=== PATIENT | female | born 1995 | race Hispanic/Latino ===

== ENCOUNTER 2019-07-28 03:16 | Emergency (ER) | payer OTHER, MEDICAID, SELFPAY ==
--- NOTE | 2019-07-28 03:20 | DI.US.S_ITS ---
PROCEDURE: US ABDOMEN LIMITED INDICATIONS: PAIN TECHNIQUE: Real-time focused scanning was performed of the abdomen, with image documentation. COMPARISON: None. FINDINGS: The included portions of the liver demonstrates mild increased echogenicity when compared to the right kidney. No focal liver lesions are appreciated. There is no intrahepatic biliary dilatation. However, the common bile duct is dilated at 8 mm in diameter. Multiple gallstones are identified within the gallbladder. There is no gallbladder wall thickening or pericholecystic fluid. The patient did exhibit a positive sonographic Garcia sign. The overlying pancreas was obscured by bowel gas. Imaged portions of the right kidney are unremarkable without hydronephrosis. IMPRESSION: 1. Cholelithiasis with associated common mild duct dilatation and a positive sonographic Garcia sign. Please correlate clinically to exclude cholecystitis. The need for better characterization utilizing MRCP may be determined clinically. 2. Probable hepatic steatosis. Note: The preliminary report provided by [facility] is concordant with the final report. Dictated by: Jenaro Tovar M.D. on 07/28/2019 at 7:47 Approved by: Jenaro Tovar M.D. on 07/28/2019 at 7:49
[2019-07-28] MEDS: SODIUM CHLORIDE 0.9% 1,000 ML 1000 ML IV (03:37)
[2019-07-28] MEDS: ONDANSETRON 4 MG/2 ML INJ IV (03:37)
[2019-07-28 03:38] LABS: Add Manual Diff / Slide Review NO; Basophils Absolute Auto 100 /uL (0-100); Basophils Percent Auto 0.4 % (0-2); Eosinophils Absolute Auto 200 /uL (0-450); Eosinophils Percent Auto 1.6 % (2-4); Hemoglobin 12.1 g/dL (12.0-16.0); Lymphocytes Absolute Auto 4200 /uL (1100-4500); Lymphocytes Percent Auto 33.2 % (25-40); Mean Corpuscular HGB Conc 32.7 % (30-36); Mean Corpuscular Hemoglobin 26.7 PG (26-34); Mean Corpuscular Volume 81.8 fL (80-100); Monocytes Absolute Auto 700 /uL (0-900); Monocytes Percent Auto 5.6 % (3-14); Neutrophils Absolute Auto 7500 /uL (1500-7000); Neutrophils Percent Auto 59.2 % (50-75); Platelet Count 409 X10^3/uL (150-400); Red Blood Cell Count 4.53 X10^6/uL (4.0-5.2); White Blood Cell Count 12.6 X10^3/uL (4.5-11.0)
[2019-07-28] MEDS: HYDROMORPHONE 0.5 MG INJ IV (03:38)
--- NOTE | 2019-07-28 03:40 | ED.ABDPAIN ---
HPI - Abdominal Pain General Chief Complaint: Abdominal Pain Stated Complaint: nausea vomiting states have gallstones Time Seen by Provider: 07/28/19 03:17 Source: patient Mode of arrival: Ambulatory Limitations: no limitations History of Present Illness HPI narrative: 24F non smoker with known gallstones presents with the chief complaint of severe epigastric and right upper quadrant pain with radiation to her back and nausea and vomiting since eating dinner last night. She states she ate a greasy meal and had some alcohol and has been extremely uncomfortable ever since. She had been seen and evaluated few months ago up in [place] and was told she had gallstones. She was referred to a surgeon but started feeling better and did not follow-up. She presented initially to another facility this evening but decided to leave their waiting room and come here instead. She denies fever or chills. She denies any dysuria, frequency or urgency. She denies any constipation or diarrhea. She has been NPO since 2299. She has no known exposure to COVID 19 complaint: abdominal pain Onset (ago): hour(s) Pain Consistency: constant Location: RUQ Severity: severe Quality: cramping and stabbing Radiation: back Relieving factors: nothing Exacerbating factors: eating and movement Associated symptoms: nausea and vomiting Related Data Previous Rx's Medication Instructions Recorded sulfamethoxazole-trimethoprim 1 tab PO BID #12 tab 06/24/16 hydrocodone-acetaminophen 1 tab PO Q4-6H PRN #10 tab 07/28/19 ondansetron 4 mg PO TID-QID PRN #10 tab 07/28/19 Allergies Allergy/AdvReac Type Severity Reaction Status Date / Time No Known Drug Allergies Allergy Verified 07/28/19 03:37 Review of Systems Constitutional Constitutional: Denies chills, Denies fatigue, Denies fever(s), Denies frequent falls, Denies lethargy and Denies weakness Eyes Eyes: Denies change in vision, Denies eye discharge, Denies irritation and Denies loss of vision ENT Ears, Nose, Mouth, and Throat: Denies change in voice, Denies dizziness, Denies neck pain, Denies sore throat and Denies throat swelling Cardiovascular Cardiovascular: Denies chest pain, Denies irregular heart rhythm, Denies lightheadedness, Denies palpitations, Denies dyspnea, Denies dyspnea on exertion and Denies orthopnea Respiratory Respiratory: Denies cough, Denies dyspnea, Denies dyspnea on exertion and Denies wheezing Gastrointestinal Gastrointestinal: Reports abdominal pain, Denies change in bowel habits, Denies diarrhea, Reports nausea and Reports vomiting Musculoskeletal Musculoskeletal: Denies neck pain and Denies numbness Integumentary/Breasts Skin/Breast: Denies pruritus, Denies erythema, Denies rash and Denies wounds Neurologic Neurologic: Denies behavioral changes, Denies confusion, Denies dizziness, Denies frequent falls, Denies loss of vision, Denies numbness and Denies weakness Psychiatric Psychiatric: Denies anxiety, Denies behavioral changes, Denies confusion, Denies depression, Denies homicidal ideation and Denies suicidal ideation Endocrine Endocrine: Denies fatigue, Denies flushing and Denies palpitations Hematologic/Lymphatic Hematologic/Lymphatic: Denies easy bruising Allergic/Immunologic Allergic/Immunologic: Denies urticaria, Denies throat swelling and Denies wheezing Patient History Social History Smoking Status: Never smoker Smoking Status: Never smoker alcohol intake frequency: a few times a month Substance Use Type: does not use Exam Narrative Exam Narrative: GENERAL: [24] year old patient appears stated age. Well-nourished, well-developed patient, in moderate distress. Obviously in pain, holding an emesis bag HEAD: Atraumatic. Normocephalic. EYES: Pupils equal round and reactive. Extraocular motions intact. No scleral icterus. No injection or drainage. ENT: Nose without bleeding, purulent drainage. Throat without erythema, tonsillar hypertrophy or exudate. Airway patent. NECK: Trachea midline. Non tender CARDIOVASCULAR: Regular rate and rhythm without murmurs, gallops, or rubs. RESPIRATORY: Clear to auscultation. Breath sounds equal bilaterally. No wheezes, rales, or rhonchi. GASTROINTESTINAL: Abdomen soft, tender in RUQ to palp, Positive Milton, nondistended. EXTREMITIES: No edema or joint tenderness. BACK: Nontender without deformity or crepitance. No flank tenderness. NEURO: AOx3. SKIN: No rash or erythema of visible areas Initial Vital Signs Initial Vital Signs: Vital Signs Pulse Rate 75 07/28/19 04:26 Respiratory Rate 18 07/28/19 04:26 Blood Pressure 107/53 L 07/28/19 04:26 Pulse Oximetry 100 07/28/19 04:26 Course Orders Ordered: Discontinued Medications Hydrocodone Bitart/Acetaminophen (Vicodin 5/325 Prepack) 1 bottle MISC SEEINSTR ONE Stop: 07/28/19 04:09 Last Admin: 07/28/19 04:16 Dose: 1 bottle Documented by: ARPIT Hydromorphone HCl (Dilaudid) 0.5 mg IV NOW ONE Stop: 07/28/19 03:21 Last Admin: 07/28/19 03:38 Dose: 0.5 mg Documented by: ARPIT Sodium Chloride (Normal Saline 0.9%) 1,000 mls @ 1,000 mls/hr IV BOLUS ONE Stop: 07/28/19 04:19 Last Infusion: 07/28/19 04:26 Dose: 0 mls/hr Documented by: Admin: 07/28/19 03:37 Dose: 1,000 mls/hr Documented by: ARPIT Ondansetron HCl (Zofran) 4 mg IV Q4HR PRN PRN Reason: Nausea And Vomiting Last Admin: 07/28/19 03:37 Dose: 4 mg Documented by: ARPIT Ondansetron HCl (Zofran Odt Prepack) 1 bottle MISC SEEINSTR ONE Stop: 07/28/19 04:09 Last Admin: 07/28/19 04:16 Dose: 1 bottle Documented by: ARPIT Consultations Consultation #1: call to Dr. Cuenca. Given lack of lab abnormalities and lack of choley on US no indication for admission at this time, but a good candidate for close outpatient follow up and scheduled surgery MDM - Abdominal Pain Lab Data Result diagrams: 07/28/19 03:24 07/28/19 03:24 Labs: Lab Results 07/28/19 07/28/19 07/28/19 Range/Units 03:24 03:24 03:24 WBC 12.6 H (4.5-11.0) X10^3/uL RBC 4.53 (4.0-5.2) X10^6/uL Hgb 12.1 (12.0-16.0) g/dL Hct 37.0 (36-46) % MCV 81.8 (80-100) fL MCH 26.7 (26-34) PG MCHC 32.7 (30-36) % RDW 15.0 H (11.6-14.8) % Plt Count 409 H (150-400) X10^3/uL Neut % (Auto) 59.2 (50-75) % Lymph % (Auto) 33.2 (25-40) % [place] % (Auto) 5.6 (3-14) % Eos % (Auto) 1.6 L (2-4) % Baso % (Auto) 0.4 (0-2) % Neut # (Auto) 7500 H (9500-2248) /uL Lymph # (Auto) 4200 (6898-7334) /uL [place] # (Auto) 700 (0-900) /uL Eos # (Auto) 200 (0-450) /uL Baso # (Auto) 100 (0-100) /uL Sodium 139 (137-145) mmol/L Potassium 3.7 (3.4-5.1) mmol/L Chloride 104 (98-107) mmol/L Carbon Dioxide 23 (22-32) mmol/L BUN 12 (7-17) mg/dL Creatinine 0.62 (0.52-1.04) mg/dL Estimated GFR > 60.0 (>60) mL/min BUN/Creatinine Ratio 19.4 (6-22) Glucose 128 H (70-100) mg/dL Calcium 9.5 (8.4-10.2) mg/dL Total Bilirubin 0.4 (0.2-1.3) mg/dL AST 36 (14-36) IU/L ALT 23 (<35) IU/L Alkaline Phosphatase 120 (38-126) U/L Total Protein 8.2 (6.3-8.2) g/dL Albumin 4.5 (3.5-5.0) g/dL Globulin 3.7 (1.7-4.1) g/dL Albumin/Globulin Ratio 1.2 (1.0-2.8) Lipase 71 (23-300) U/L Serum , Qual Negative (Negative) Imaging Data US - abdomen: Radiologist's Impression: Chart Viewer Diagnostics DATE TYPE STATUS REF RANGE/AUTHOR Hx 07/28/19 03:20 Jenaro Tovar,[place] 24, F0 1995 DEP ER, [facility] 94.801kg Abdominal Pain Search Chart No Data to Display ONSET 07/28/19 04:26 Micki Naqvi 24 F [address] [address] Ultrasound Report Signed Patient: Mindy Naqvi#: [id number] : 1995Acct:[id number] Age/Sex: 24 / FDate of Service: 07/28/19 Loc: ED Accession Number: [id number] Procedure: US abdomen limited Ordering Provider: Andre Coelho D.O. PROCEDURE: US ABDOMEN LIMITED INDICATIONS: PAIN TECHNIQUE: Real-time focused scanning was performed of the abdomen, with image documentation. COMPARISON: None. FINDINGS: The included portions of the liver demonstrates mild increased echogenicity when compared to the right kidney. No focal liver lesions are appreciated. There is no intrahepatic biliary dilatation. However, the common bile duct is dilated at 8 mm in diameter. Multiple gallstones are identified within the gallbladder. There is no gallbladder wall thickening or pericholecystic fluid. The patient did exhibit a positive sonographic Garcia sign. The overlying pancreas was obscured by bowel gas. Imaged portions of the right kidney are unremarkable without hydronephrosis. IMPRESSION: 1. Cholelithiasis with associated common mild duct dilatation and a positive sonographic Garcia sign. Please correlate clinically to exclude cholecystitis. The need for better characterization utilizing MRCP may be determined clinically. 2. Probable hepatic steatosis. Note: The preliminary report provided by [employer] is concordant with the final report. Dictated by: Jenaro Tovar M.D. on 07/28/2019 at 7:47 Approved by: Jenaro Tovar M.D. on 07/28/2019 at 7:49 [facility] Narrative Medical decision making narrative: 24F with known GB disease develops pain after fatty meal. Pain on exam, but reasuring labs and preliminary US report. Pain controlled, no more vomiting. Discussion regarding low fat diet, pain meds, close follow up and return precautions. Patient understands and agrees with the plan. Questions answered to her apparent satisfaction. Discharge Plan Departure Patient Disposition: Home Clinical Impression: Biliary colic Discharge Date/Time: 07/28/19 04:19 Instructions: Gallstones Activity Restrictions/Additional Instructions: *You have been diagnosed with [ abdominal pain due to gallgladder disease ] *What to do: *Take medications as directed: Prescriptions sent to [facility] in [place] *Follow up with [facility] in 2-3 days, call for an appointment. Let them know you were seen in the Emergency Department and that we ask that you be seen in follow up *Return to ER if you should have any new, worsening or concerning symptoms, such as [ recurrence of pain, fever over 101F, jaundice (yellowing of the skin) orother bothersome symptoms 1. Drink plenty of fluids with frequent small sips. 2. For the next 24 hours a clear liquid diet is advised. After that please employ a brat diet which would include bananas, rice, apples, toast. 3. Avoid fatty or greasy foods Prescriptions: New hydrocodone-acetaminophen 5-325 mg tablet 1 tab PO Q4-6H PRN (Reason: pain) Qty: 10 RF: 0 ondansetron 4 mg tablet,disintegrating 4 mg PO TID-QID PRN (Reason: nausea and vomiting) Qty: 10 RF: 0 No Action sulfamethoxazole-trimethoprim 800 MG/160 MG tablet 1 tab PO BID Qty: 12 RF: 0 Referrals: Temo Cuenca MD [Physician] - Pam Harris MD [Primary Care Provider] -
[2019-07-28 03:48] LABS: Alanine Aminotransferase 23 IU/L (<35); Albumin 4.5 g/dL (3.5-5.0); Albumin Globulin Ratio 1.2 (1.0-2.8); Alkaline Phosphatase 120 U/L (38-126); Aspartate Aminotransferase 36 IU/L (14-36); BUN Creatinine Ratio 19.4 (6-22); Bilirubin Total 0.4 mg/dL (0.2-1.3); Blood Urea Nitrogen 12 mg/dL (7-17); Calcium 9.5 mg/dL (8.4-10.2); Carbon Dioxide 23 mmol/L (22-32); Chloride 104 mmol/L (98-107); Estimated Glomerular Filt Rate > 60.0 mL/min (>60); Globulin 3.7 g/dL (1.7-4.1); Glucose 128 mg/dL (70-100); HEMOLYSIS < 15 (0-50); Lipase 71 U/L (23-300); Potassium 3.7 mmol/L (3.4-5.1); Sodium 139 mmol/L (137-145); Total Protein 8.2 g/dL (6.3-8.2)
[2019-07-28] MEDS: ONDANSETRON 4 MG ODT PREPACK 1 BOTTLE MISC (04:16)
[2019-07-28] MEDS: HYDROCODONE/ACET 5/325 PREPACK 1 BOTTLE MISC (04:16)
[2019-07-28 04:26] VITALS: BP 107/53; PULSE 75; RESP 18; O2SAT 100
[2019-07-28 04:27] LABS: Pregnancy Test Serum,Qual Negative (Negative)
== END 2019-07-28 04:19 | disposition home or self-care (01) ==
PROVIDERS: Emergency Provider Emergency Medicine; PCP Pediatrics
DX: K80.50 Calculus of bile duct without cholangitis or cholecystitis without obstruction (principal); R11.2 Nausea with vomiting, unspecified
CPT/HCPCS: 36415; 76705; 80053; 83690; 84703; 85025; 96361; 96374; 96375; 99284; J1170; J2405

== ENCOUNTER → 2019-08-26 08:35 | Outpatient (CLI) | payer OTHER, MEDICAID, SELFPAY ==
[2019-08-27 14:06] LABS: COVID19 Sendout Not Detected (Not Detect)
== END ==
PROVIDERS: PCP Pediatrics; Visit Provider Physician Assistant
DX: Z01.812 Encounter for preprocedural laboratory examination (principal)
CPT/HCPCS: 87635

== ENCOUNTER 2019-08-29 07:41 | Day surgery (SDC) | payer OTHER, MEDICAID, SELFPAY ==
[2019-08-22 15:05] VITALS: BMI 40.0
[2019-08-29] VITALS (13 sets, daily range): BP systolic 94–146; BP diastolic 41–88; PULSE 79–109; RESP 16–24; TEMP 36.3–36.7; O2SAT 89–100; BMI 40.0
--- NOTE | 2019-08-29 | PATH_ITS ---
[facility] Accession Number: [id number] . 01 Material submitted: . gallbladder - GALLBLADDER . 02 Diagnosis: Gallbladder, Cholecystectomy: Chronic cholecystitis, cholesterolosis, and cholelithiasis. V 08/31/2019 1058 Local . 02 Electronically signed: . Rosario Lawson MD, Pathologist NPI- [id number] . 01 Gross description: . Specimen A is received in formalin, labeled with patient identification and gallbladder. It consists of an intact gallbladder measuring 7.0 cm in length and 2.5 cm in diameter. The cystic duct margin is stapled shut and is inked blue. The cystic duct is 0.3 cm in diameter. The serosa is pink-eubanks and dull. The hepatic surface is yellow-eubanks, shaggy and cauterized. Opening the specimen reveals green-eubanks and velvety mucosa with multiple yellow-eubanks excrescence and multiple yellow-eubanks and cerebriform calculi measuring 1.2 x 0.7 x 0.4 cm in aggregate. Multiple calculi are present at the neck. The wall thickness is up to 0.3 cm. No cystic lymph node candidate is present. Weatherization And Housing Inspector sections are submitted in two cassettes. . Summary of sections: A1 - cystic duct margin, shaved, one piece. A2 - customer relations representative sections of gallbladder, three pieces. ([id number]) /MRV 08/30/2019 1354 Local . 02 Pathologist provided ICD-10: K80.20 . 02 CPT . 510380 Performed at: 01 [facility] [address], [place], [place] [id number] MD Zaire Thrasher MD Phone: [phone] Performed at: 02 [facility] [address] [place] [id number] MD Farzaneh Fall MD Phone: [phone]
[2019-08-29] MEDS: LACTATED RINGERS 1,000 ML 42 ML IV ×2 (08:23→11:07)
[2019-08-29] MEDS: Non-Formulary Medication (Indocyanine Green 25 MG) 25 EACH IV (08:23)
--- NOTE | 2019-08-29 08:39 | PM.PREOP ---
Pre-operative Note COVID-19 COVID-19 status: Negative Result date/Date tested (Pos, Neg/Pending): 08/26/19 Interval Note History & Physical reviewed/Exam performed by Physician: Yes Changes to H&P: No H&P completed within 30 days and has changed as indicated here:: Continues to have episodes of colicky RUQ pain, no jaundice or fever, takes Tylenol for pain. Last episode was one week ago.
[2019-08-29] MEDS: PIPERACILLIN-TAZO 3.375 GM/50 ML FROZ.PIGGY IV (09:45)
--- NOTE | 2019-08-29 10:01 | SUR.OPER ---
Supine on padded OR bed, head on pillow, arms secured on padded arm boards at <90 degrees abduction, legs uncrossed, safety belt at thigh, tape over blanket over lower legs.
[2019-08-29] MEDS: BUPIVACAINE 0.25% W/ EPI 30 ML VIAL 60 ML INJ (10:14)
--- NOTE | 2019-08-29 11:16 | P.OP_ITS ---
Operative Date/Time/Diagnoses Date of procedure: 08/29/19 Time of procedure: 11:16 Pre-op diagnosis: symptomatic cholelithiasis, chronic cholecystitis Post-op diagnosis: same Procedure & Clinicians Procedure: Laparoscopic cholecystectomy Same procedure as scheduled: Yes Indications: Symptomatic cholelithiasis, chronic cholecystitis Surgeon: Nadeen Kay Click Yes if Unassisted: Yes Anesthesia Type: General Operative Notes Findings: Thickened gallbladder, narrow cystic duct, good critical view of safety, hypervascularity Specimen(s): other (Gallbladder) Estimated Blood Loss (mL): 5 Blood products transfused: none Procedure in detail: The patient was brought into the operating room and placed supine on the OR table. Sequential compression devices were placed on both legs and turned on. Appropriate perioperative antibiotics were given prior to the start of surgery. General anesthesia was induced the patient was intubated. The abdomen was prepped and draped in sterile fashion. Surgical time-out was conducted. Local anesthetic was injected under the skin just superior to the umbilicus and a 5 mm vertical incision was made at this site. The umbilical stalk was grasped with a Kody and elevated. A Veress needle was passed through the fascia into proper position. The position was tested with a saline drop test which was appropriate for intra-abdominal Veress needle placement. The abdomen was then insufflated in the usual fashion. Once insufflated to 15 mm Hg the Veress needle was removed and a 5 mm optical trocar was placed under direct vision using a 5 mm 30 degree scope. Once the camera was inside the abdomen I took a look around. There was no injury from port placement. Two additional ports were placed in a similar fashion in the right upper quadrant and a 10 mm port was placed in the epigastrium. Through the 2 lateral ports the gallbladder was grasped and elevated and the infundibulum was retracted laterally to the patient's right. This exposed the gallbladder hilum and allowed for dissection of the cystic duct and cystic artery. There was moderate amount scar tissue throughout the gallbladder hilum. This required tedious careful dissection to avoid injury to the bile ducts. Once the cystic duct and artery were completely dissected out and I was able to see liver behind and between both structures without any other structures in the way, this case us the critical view of safety. At this point I doubly clipped both st ructures on the patient's side and put a single clip on the gallbladder side of both the cystic duct and artery. Both structures were then divided with laparoscopic [place]. Following this the gallbladder was gradually dissected free from the liver. There was quite a bit of hypervascularity of the scar tissue between the gallbladder and the liver. Several small vessels had to be controlled with s urgical clips. Once the gallbladder was entirely freed, it was placed inside an Endo-Catch bag and removed through the epigastric port site. I [did not] have to enlarge the epigastric site in order to get the gallbladder out. Once it was out and passed off to the back table I then took another look inside the abdomen. I suctioned clean any remaining blood or fluid on the lateral side of the liver and in the subhepatic space. I put 2 surgeons cells in the gallbladder fossa to cover the raw surface of the gallbladder fossa. There was no active bleeding or leaking of bile from the gallbladder fossa or from the clipped stumps of the cystic duct and artery. At this point the insufflation was removed from the abdomen and the epigastric port site was closed with 0 Vicryl suture in the fascia, 3 O Vicryl in the subcutaneous layers, and 4 Monocryl in the skin. The remaining port sites were closed with 4 Monocryl in the skin. Each port site was sealed with Dermabond. Local anesthetic was given at each of the port sites and in the fascia. This concluded the procedure. At this point the needle sponge and instrument counts were correct. The gallbladder was passed off the table for pathology. Patient was awakened from anesthesia and extubated. She was transferred to the postanesthesia care unit in stable condition. Complications: none Post-operative Condition: stable Disposition: PACU
--- NOTE | 2019-08-29 11:30 | SUR.PHASEI ---
Recieved to PACU at 1116. Report received from Dr Sousa and TWIN Best On arrival, O2 sats 83% on room air. Lung sounds diminished with minimal upper ventilation. Placed on 6L NC via oral airway. Jaw lift perfomed with good result. O2 sats up to 95%. At 1120, no further jaw lift required. O2 sats currently 98%. Pt remains unresponsive.
[2019-08-29] MEDS: HYDROMORPHONE 2 MG INJ IV ×2 (11:48→12:10)
[2019-08-29] MEDS: OXYCODONE IR 5 MG TABLET PO (12:20)
--- NOTE | 2019-08-29 12:32 | SUR.PHASEI ---
VSS. Pain controlled as noted. Abdominal dressing D/I. Tolerated apple sauce and water. Will transfer to Phase II
--- NOTE | 2019-08-29 17:12 | SUR.PHASEII ---
late entry: Stable phase 2 voiced understanding of d/c instructions, and pt left when ready and left in stable condition.
== END 2019-08-29 13:45 | disposition home or self-care (01) ==
PROVIDERS: PCP Nurse Practitioner; Referring Provider Surgery; Visit Provider Surgery
PROC: 0FT44ZZ Resection of Gallbladder, Percutaneous Endoscopic Approach (ICD-10-PCS; CPT 47562; principal; 2019-08-29 08:45)
DX: K80.10 Calculus of gallbladder with chronic cholecystitis without obstruction (principal); J45.909 Unspecified asthma, uncomplicated; F32.9 Major depressive disorder, single episode, unspecified; F43.10 Post-traumatic stress disorder, unspecified
CPT/HCPCS: 47562; J0330; J1100; J1170; J2250; J2405; J2543; J2704; J3010

== ENCOUNTER 2020-08-01 22:02 | Emergency (ER) | payer OTHER, MEDICAID, SELFPAY ==
[2020-08-01 22:20] VITALS: BP 129/76; PULSE 106; RESP 15; TEMP 37.2; O2SAT 99; BMI 39.9
--- NOTE | 2020-08-01 23:56 | DI.US.S_ITS ---
PROCEDURE: US BREAST RT LIMITED COMPARISON: None. INDICATIONS: right breast pain, history of abscess FINDINGS: Ultrasound of the upper inner quadrant of the right breast demonstrates no abnormality. No mass or abscess identified. IMPRESSION: Unremarkable ultrasound of the upper inner quadrant of the right breast. Dictated by: Balbir Vargas M.D. on 08/02/2020 at 18:13 Approved by: Balbir Vargas M.D. on 08/02/2020 at 18:17
--- NOTE | 2020-08-02 01:22 | ED_ITS ---
HPI - Skin/Abscess/Foreign Bdy General Chief complaint: Skin/Abscess/Foreign Body Stated complaint: rt breast pain, no known injury Time Seen by Provider: 08/01/20 23:14 Source: patient Mode of arrival: Ambulatory Limitations: no limitations History of Present Illness HPI narrative: 25-year-old female nonsmoker with a history of a left sided breast abscess presents with family in the chief complaint of discomfort in her right breast over the past day or 2. She states it is worse if she leans over or uses her right arm. She denies any fever or chills nor redness, warmth, swelling or red streaks. She has had no nipple discharge or discoloration. She denies any recent change in activities or over exertion. She is otherwise well and free of complaint Tetanus up to date: yes Location: chest Severity: mild Quality: aching Pain Consistency: intermittent Relieving factors: rest Exacerbating factors: movement Context: none Treatments prior to arrival: none Related Data Previous Rx's Medication Instructions Recorded docusate sodium 100 mg PO BID #30 cap 08/29/19 oxycodone 5 mg PO Q4H PRN #30 tab 08/29/19 Allergies Allergy/AdvReac Type Severity Reaction Status Date / Time No Known Drug Allergies Allergy Verified 08/01/20 22:22 Review of Systems Constitutional Constitutional: Denies chills, Denies fatigue, Denies fever(s), Denies frequent falls, Denies lethargy and Denies weakness Eyes Eyes: Denies change in vision, Denies eye discharge, Denies irritation and Denies loss of vision ENT Ears, Nose, Mouth, and Throat: Denies change in voice, Denies dizziness, Denies neck pain, Denies sore throat and Denies throat swelling Cardiovascular Cardiovascular: Denies chest pain, Denies irregular heart rhythm, Denies lightheadedness, Denies palpitations, Denies dyspnea, Denies dyspnea on exertion and Denies orthopnea Respiratory Respiratory: Denies cough, Denies dyspnea, Denies dyspnea on exertion and Denies wheezing Gastrointestinal Gastrointestinal: Denies abdominal pain, Denies change in bowel habits, Denies diarrhea, Denies nausea and Denies vomiting Musculoskeletal Musculoskeletal: Denies neck pain and Denies numbness Integumentary/Breasts Skin/Breast: Denies pruritus, Denies erythema, Denies rash and Denies wounds Comments: Right breast pain Neurologic Neurologic: Denies behavioral changes, Denies confusion, Denies dizziness, Denies frequent falls, Denies loss of vision, Denies numbness and Denies weakness Psychiatric Psychiatric: Denies anxiety, Denies behavioral changes, Denies confusion, Denies depression, Denies homicidal ideation and Denies suicidal ideation Endocrine Endocrine: Denies fatigue, Denies flushing and Denies palpitations Hematologic/Lymphatic Hematologic/Lymphatic: Denies easy bruising Allergic/Immunologic Allergic/Immunologic: Denies urticaria, Denies throat swelling and Denies wheezing Patient History Medical History Asthma Major depression (~2015) PTSD (post-traumatic stress disorder) Surgical History Hx of section Family History Mother Hypertension Gallstones Father Diabetes mellitus Social History marital status: household members: spouse and children occupational status: employed Smoking Status: Never smoker alcohol intake: current substance use type: does not use Smoking Status: Never smoker alcohol intake frequency: holidays/special occasions only Substance Use Type: does not use Exam Narrative Exam Narrative: GENERAL: [25] year old patient appears stated age. Well- developed patient, in mild distress. HEAD: Atraumatic. Normocephalic. EYES: Pupils equal round and reactive. Extraocular motions intact. No scleral icterus. No injection or drainage. ENT: Nose without bleeding, purulent drainage. Throat without erythema, tonsillar hypertrophy or exudate. Airway patent. NECK: Trachea midline. Non tender CARDIOVASCULAR: Regular rate and rhythm without murmurs, gallops, or rubs. RESPIRATORY: Clear to auscultation. Breath sounds equal bilaterally. No wheezes, rales, or rhonchi. GASTROINTESTINAL: Abdomen soft, non-tender, nondistended. EXTREMITIES: No edema or joint tenderness. BACK: Nontender without deformity or crepitance. No flank tenderness. NEURO: AOx3. SKIN: Right breast examined with female nursing bleach boiler packer at the bedside and patient's permission. There is no swelling, induration, warmth, erythema or drainage. No rash or erythema of visible areas Initial Vital Signs Initial Vital Signs: Vital Signs Temperature 99.0 F 08/01/20 22:20 Pulse Rate 106 H 08/01/20 22:20 Respiratory Rate 15 08/01/20 22:20 Blood Pressure 129/76 08/01/20 22:20 Pulse Oximetry 99 08/01/20 22:20 Course Orders Ordered: ED Orders 08/01/20 23:56 US breast RT limited Stat Vital Signs Vital signs: Vital Signs - 8 hr 08/02/20 01:44 Pulse Rate 77 Respiratory Rate 16 Blood Pressure 118/57 L Pulse Oximetry 98 MDM - Skin/Abscess/Foreign Bdy Imaging Data Breast US: Radiologist's Impression: No acute finding MDM Narrative Medical decision making narrative: Multiple diagnoses including breast abscess versus fibroid versus other mass versus cellulitis versus chest wall abnormality. Her exam is very reassuring and there is no obvious abnormality based on exam. Ultrasound is very reassuring. Return precautions given and questions answered to her apparent satisfaction Discharge Plan Departure Patient Disposition: Home Clinical Impression: Acute breast pain Instructions: DI for Breast Pain (Mastalgia) Activity Restrictions/Additional Instructions: *You have been diagnosed with [Right breast pain, no evidence of abscess or other abnormal finding on the ultrasound ] *What to do: *Please continue to take your regular medications as directed. [ ] New medication prescriptions sent to your pharmacy: [ ] [ ] New medication written as a paper prescription [ x] No new medications given *Please follow up with your primary care provider in 2-3 days, call for an appointment. Let them know you were seen in the Emergency Department and that we ask that you be seen in follow up. We will electronically transmit a record of today's note if your PCP is in our system *If you do not have a primary care provider please contact the [facility] Resource line at [phone]. They will ask some questions about your medical history and help get you set up with a doctor in the community. *Return to Emergency Department if you should have any new, worsening or concerning symptoms, such as [fever greater than 101 F, shaking chills, worsening pain, persistent vomiting or other bothersome symptoms] Prescriptions: No Action oxycodone 5 mg tablet 5 mg PO Q4H PRN (Reason: post operative pain) Qty: 30 RF: 0 docusate sodium 100 mg capsule 100 mg PO BID Qty: 30 RF: 0 Referrals: Jyotsna Henderson ARNP [Primary Care Provider] -
[2020-08-02 01:44] VITALS: BP 118/57; PULSE 77; RESP 16; O2SAT 98
== END 2020-08-02 01:45 | disposition home or self-care (01) ==
PROVIDERS: Emergency Provider Emergency Medicine; PCP Nurse Practitioner
DX: N64.4 Mastodynia (principal)
CPT/HCPCS: 76642; 99283

== ENCOUNTER → 2021-12-03 16:50 | Outpatient (CLI) | payer OTHER, MEDICAID, SELFPAY | PROVIDERS: Referring Provider Internal Medicine; Visit Provider Internal Medicine | DX: Z23 Encounter for immunization (principal) | CPT/HCPCS: 90471; 90686 ==

== ENCOUNTER 2022-02-08 00:22 | Emergency (ER) | payer OTHER, MEDICAID, SELFPAY ==
[2022-02-08] VITALS (11 sets, daily range): BP systolic 96–123; BP diastolic 57–83; PULSE 72–90; RESP 18; TEMP 36.5; O2SAT 96–100; BMI 35.9
--- NOTE | 2022-02-08 01:53 | ED_ITS ---
HPI - Abdominal Pain General Chief Complaint: Abdominal Pain Stated Complaint: stomach pain Time Seen by Provider: 02/08/22 01:21 Source: patient Mode of arrival: Ambulatory Limitations: no limitations History of Present Illness HPI narrative: This is a 26-year-old female with history of cholecystectomy with complaint of abdominal pain that she describes her upper abdominal pain that started today. She felt sort of fullness or pressure for the last 2 days and then pain starting today. Patient states it sort of radiates to both sides it has been sort of patchy in different locations including her lower abdomen, occasionally in her chest. She denies back or flank pain. She denies fevers or chills. She denies nausea or vomiting. No diaphoresis. She denies any shortness of breath. Patient denies dysuria, urgency or frequency. She denies any vaginal bleeding or discharge recently. She notes she had some spotting about 2 months ago was evaluated she is had an IUD in place for 3 years and was not having regular periods and was told everything was normal. Patient states she is had normal bowel movements with no black or bloody stools. She does note she is taking some weight loss medication that she received prescription in [place], she does not know the name or have the bottle with her. Patient states she is had cholecystectomy and . Denies other surgeries. No tobacco, occasional alcohol, no illicit. Related Data Previous Rx's Medication Instructions Recorded docusate sodium 100 mg capsule 100 mg PO BID prevent constipation 08/29/19 from pain medicine #30 caps oxycodone 5 mg tablet 5 mg PO Q4H PRN post operative 08/29/19 pain #30 tabs famotidine 40 mg tablet (Pepcid) 40 mg PO DAILY #30 tabs 02/08/22 tramadol 50 mg tablet 50 mg PO Q6H PRN pain #10 tabs 02/08/22 Allergies Allergy/AdvReac Type Severity Reaction Status Date / Time No Known Drug Allergies Allergy Verified 08/01/20 22:22 Review of Systems Review of Systems ROS Unobtainable: All systems reviewed & are unremarkable except as noted in HPI and below Patient History Medical History (Updated 02/08/22 @ 06:29 by Laverne Qureshi DO) Asthma Major depression (~2014) PTSD (post-traumatic stress disorder) Surgical History Hx of section Family History Mother Hypertension Gallstones Father Diabetes mellitus Social History marital status: household members: spouse and children occupational status: employed Smoking Status: Never smoker alcohol intake: current substance use type: does not use Smoking Status: Never smoker alcohol intake frequency: holidays/special occasions only Substance Use Type: does not use Exam Narrative Exam Narrative: GENERAL: Alert and oriented x three, female in mild distress HEENT: Head normocephalic, atraumatic, EOMI, pupils reactive, face symmetric, moist mucous membranes NECK: Supple, full range of motion CARDIOVASCULAR: Regular rate and rhythm without murmurs, rubs or gallops. RESPIRATORY: Breath sounds equal bilaterally, no wheezes rales or rhonchi. ABDOMEN: Soft, very mild epigastric tenderness. Normoactive bowel sounds all 4 quadrants. No guarding or rebound, rigidity, no mass, nondistended. No pulsatile mass or bruits. : No CVA tenderness EXTREMITIES: Normal range of motion, no clubbing or edema. Neurovascularly intact NEUROLOGICAL: Cranial nerves II through XII grossly intact. Moving all extremities SKIN: Warm, dry, no petechiae, no rashes or lesions. Initial Vital Signs Initial Vital Signs: Vital Signs Temperature 97.7 F 02/08/22 00:30 Pulse Rate 90 02/08/22 00:30 Respiratory Rate 18 02/08/22 00:30 Blood Pressure 123/65 02/08/22 00:30 Pulse Oximetry 100 02/08/22 00:30 Oxygen Delivery Method 02/08/22 00:30 Course Orders Ordered: ED Orders 02/08/22 01:34 Urine Microscopic Stat 02/08/22 02:00 CBC Auto Diff [Complete Blood Count AUTO DIFF] Stat CMP [Comprehensive Metabolic Panel] Stat Lipase Stat Troponin & CK Cardiac Panel Stat 02/08/22 02:10 EKG-12 Lead Stat 02/08/22 02:14 CT abdomen pelvis w con Stat Chest [XR chest 1V] Stat Discontinued Medications Al Hydrox/Mg Hydrox/Simethicone (Mag Hydrox/Alum/Simeth 30 Ml Udc) 30 ml PO NOW ONE Stop: 02/08/22 05:12 Last Admin: 02/08/22 05:21 Dose: 30 ml Documented By: FER Al Hydrox/Mg Hydrox/Simethicone 20 ml/ Lidocaine HCl 15 ml 0 ml PO NOW ONE Stop: 02/08/22 05:10 Last Admin: 02/08/22 05:28 Dose: Not Given Documented By: FER Lidocaine HCl (Lidocaine Viscous 2% 15 Ml Solution) 15 ml PO NOW ONE Stop: 02/08/22 05:12 Last Admin: 02/08/22 05:21 Dose: 15 ml Documented By: FER Pantoprazole Sodium (Pantoprazole 40 Mg Vial) 40 mg IV NOW ONE Stop: 02/08/22 02:15 Last Admin: 02/08/22 02:22 Dose: 40 mg Documented By: FER Reevaluation(s) Reevaluation #2: patient is feeling improved. Reviewed findings from CT. Pain is more epigastric and suspect possible ulcer. Time: 06:31 Vital Signs Vital signs: Vital Signs - 8 hr 02/08/22 00:30 02/08/22 02:05 02/08/22 02:06 Temperature 97.7 F Pulse Rate 90 Respiratory Rate 18 Blood Pressure 123/65 118/83 Pulse Oximetry 100 97 Oxygen Delivery Method Room Air 02/08/22 02:06 02/08/22 02:30 02/08/22 02:30 Temperature Pulse Rate 85 77 Respiratory Rate Blood Pressure 118/70 Pulse Oximetry 96 100 Oxygen Delivery Method 02/08/22 03:00 02/08/22 03:00 02/08/22 03:30 Temperature Pulse Rate 77 Respiratory Rate Blood Pressure 106/63 109/61 Pulse Oximetry 100 Oxygen Delivery Method 02/08/22 03:30 02/08/22 04:00 02/08/22 04:00 Temperature Pulse Rate 72 80 Respiratory Rate Blood Pressure 103/60 Pulse Oximetry 100 96 Oxygen Delivery Method 02/08/22 04:30 02/08/22 04:30 02/08/22 05:00 Temperature Pulse Rate 82 Respiratory Rate Blood Pressure 96/60 99/60 Pulse Oximetry 97 Oxygen Delivery Method 02/08/22 05:00 02/08/22 05:30 02/08/22 05:30 Temperature Pulse Rate 79 86 Respiratory Rate Blood Pressure 104/60 Pulse Oximetry 99 98 Oxygen Delivery Method 02/08/22 06:00 02/08/22 06:00 Temperature Pulse Rate 81 Respiratory Rate Blood Pressure 103/57 L Pulse Oximetry 96 Oxygen Delivery Method MDM - Abdominal Pain Lab Data Result diagrams: 02/08/22 02:00 02/08/22 02:00 Labs: Lab Results 02/08/22 02/08/22 02/08/22 Range/Units 01:34 02:00 02:00 WBC 12.8 H (4.5-11.0) X10^3/uL RBC 4.58 (4.0-5.2) X10^6/uL Hgb 13.8 (12.0-16.0) g/dL Hct 41.3 (36-46) % MCV 90.3 (80-100) fL MCH 30.1 (26-34) PG MCHC 33.3 (30-36) % RDW 12.9 (11.6-14.8) % Plt Count 385 (150-400) X10^3/uL Neut % (Auto) 63.9 (50-75) % Lymph % (Auto) 27.7 (25-40) % [place] % (Auto) 5.6 (3-14) % Eos % (Auto) 2.5 (2-4) % Baso % (Auto) 0.3 (0-2) % Neut # (Auto) 8200 H (5520-0233) /uL Lymph # (Auto) 3500 (5554-1683) /uL [place] # (Auto) 700 (0-900) /uL Eos # (Auto) 300 (0-450) /uL Baso # (Auto) 0 (0-100) /uL Sodium 138 (137-145) mmol/L Potassium 3.8 (3.4-5.1) mmol/L Chloride 100 (98-107) mmol/L Carbon Dioxide 26 (22-32) mmol/L BUN 9 (7-17) mg/dL Creatinine 0.64 (0.52-1.04) mg/dL Estimated GFR > 60 (>60) mL/min BUN/Creatinine Ratio 14.1 (6-22) Glucose 104 H (70-100) mg/dL Calcium 9.1 (8.4-10.2) mg/dL Total Bilirubin 0.8 (0.2-1.3) mg/dL AST 24 (14-36) IU/L ALT 24 (<35) IU/L Alkaline Phosphatase 120 (38-126) U/L Total Creatine Kinase (30-135) U/L CK-MB (CK-2) CK-MB (CK-2) Rel Index Troponin I (0.01-0.034) ng/mL Total Protein 9.3 H (6.3-8.2) g/dL Albumin 4.7 (3.5-5.0) g/dL Globulin 4.6 H (1.7-4.1) g/dL Albumin/Globulin Ratio 1.0 (1.0-2.8) Lipase 47 (23-300) U/L Urine RBC 0-1/hpf (0-5/HPF) Urine WBC 0-1/hpf (0-5/HPF) Ur Squamous Epith Cells 0-1 /hpf (0-5/HPF) Urine Bacteria None seen (None) Ur Culture Indicated? Cult not indicated 02/08/22 Range/Units 02:00 WBC (4.5-11.0) X10^3/uL RBC (4.0-5.2) X10^6/uL Hgb (12.0-16.0) g/dL Hct (36-46) % MCV (80-100) fL MCH (26-34) PG MCHC (30-36) % RDW (11.6-14.8) % Plt Count (150-400) X10^3/uL Neut % (Auto) (50-75) % Lymph % (Auto) (25-40) % Gulf % (Auto) (3-14) % Eos % (Auto) (2-4) % Baso % (Auto) (0-2) % Neut # (Auto) (0325-3247) /uL Lymph # (Auto) (0771-1325) /uL [place] # (Auto) (0-900) /uL Eos # (Auto) (0-450) /uL Baso # (Auto) (0-100) /uL Sodium (137-145) mmol/L Potassium (3.4-5.1) mmol/L Chloride (98-107) mmol/L Carbon Dioxide (22-32) mmol/L BUN (7-17) mg/dL Creatinine (0.52-1.04) mg/dL Estimated GFR (>60) mL/min BUN/Creatinine Ratio (6-22) Glucose (70-100) mg/dL Calcium (8.4-10.2) mg/dL Total Bilirubin (0.2-1.3) mg/dL AST (14-36) IU/L ALT (<35) IU/L Alkaline Phosphatase (38-126) U/L Total Creatine Kinase 63 (30-135) U/L CK-MB (CK-2) TNP CK-MB (CK-2) Rel Index TNP Troponin I < 0.012 (0.01-0.034) ng/mL Total Protein (6.3-8.2) g/dL Albumin (3.5-5.0) g/dL Globulin (1.7-4.1) g/dL Albumin/Globulin Ratio (1.0-2.8) Lipase (23-300) U/L Urine RBC (0-5/HPF) Urine WBC (0-5/HPF) Ur Squamous Epith Cells (0-5/HPF) Urine Bacteria (None) Ur Culture Indicated? Point of care testing: Point of Care Testing Test Results Negative Urine Dip Bedside Urine Glucose Negative Bedside Urine Bilirubin - Negative Bedside Urine Ketone - Negative Urine Specific [place] 1.015 Bedside Urine Occult Blood ++ Bedside Urine pH 6.0 Bedside Urine Protein - Negative Bedside Urine Urobilinogen - Negative Bedside Urine Nitrite - Negative Bedside Urine Leukocytes - Negative Esterase Imaging Data CT scan - abdomen/pelvis: Radiologist's Impression: Previous cholecystectomy, IUD is in place it is low lying upper extent 2.2 cm below upper end of the endometrial cavity. No acute abnormality of the uterus is appreciated. Small cyst in the left ovary is partially collapsed measuring 2 cm diameter. No hemorrhage or free fluid in the pelvis. Urinary bladder is unremarkable. Chest x-ray: Radiologist's Impression: no acute process. Cardiomediastinal silhouette is unremarkable, lungs are well aerated and clear. No mass, infiltrate or atelectasis apparent, no pleural effusion suspected. Osseous structures are unremarkable. ECG Data Attestation: I personally reviewed and interpreted this ECG as follows: Prior ECG tracings: not available for review Interpretation: Rate 82 MS 166 QRS is 64 QTC of 441. No acute ST elevation depression noted. Patient does not have priors for comparison. MDM Narrative Medical decision making narrative: This is a old female with history of cholecystectomy with abdominal pain mostly epigastric but sort of patchy in her abdomen but also noted left upper chest at 1 point. Patient had EKG which does not show acute changes. Patient has a white count of 12, no anemia, platelets are normal CMP shows a glucose of 104 with normal renal function, electrolytes and LFTs. Lipase is negative. Urine showed blood on dip but 0-1 RBCs, 0-1 wbc's and 0-1 squamous epithelial with no bacteria. Total protein and globulin are elevated at 9.3 and 4.6, troponin CT imaging was obtained as patient states it feels very similar to when she had gallstones although she is had her gallbladder out. Patient states protonix was helpful. Pain is starting to comeback on recheck at 0511, Will try a GI cocktail. CT imaging is still pending, appears to have possible thicking stomach, no free air on my prelim read. CXR is negative. Spoke with DI, CT done but did not get to ED printer. Patient is feeling improved. Gi cocktail was helpful. Plan for pepcid x 30 days, f/u for EGD. Reviewed Left ovarian cyst is possible source of lower pain from earlier but less likely for epigastric pain. All questions answered return precautions discussed. Discharge Plan Departure Patient Disposition: Home Clinical Impression: Abdominal pain, Left ovarian cyst Instructions: Peptic Ulcer, DI for Abdominal Pain-Adult Activity Restrictions/Additional Instructions: Your imaging today does show a left ovarian cyst, IUD is in place, no other major changes noted. I would recommend that you try pepcid 40mg daily for 3-4 weeks. If this improves your symptoms it may be helpful to follow up for EGD to evaluate for ulcer. You can take tramadol 1 tablet every 6 hours as needed for pain. This medication can make you sleepy do not drive, perform hazardous activities or make any major decisions while taking it. This medication will make you constipated please take a stool softener once to twice daily until stools are soft and regular. Prescription sent to [facility]. Please return for fevers, rapidly worsening pain, persistent vomiting, increasing abdominal, back flank pain, black or bloody stools or other new or concerning changes Prescriptions: New famotidine [Pepcid] 40 mg tablet 40 mg PO DAILY Qty: 30 0RF tramadol 50 mg tablet 50 mg PO Q6H PRN (Reason: pain) Qty: 10 0RF No Action oxycodone 5 mg tablet 5 mg PO Q4H PRN (Reason: post operative pain) Qty: 30 0RF docusate sodium 100 mg capsule 100 mg PO BID Qty: 30 0RF Stand Alone Forms: Work Release Note
[2022-02-08 01:55] LABS: Bacteria Urine None Seen; Culture Indicated Urine Cult Not Indicated; RBC Urine 0-1/HPF (0-5/HPF); Squamous Epithelial Cell Urine 0-1 /HPF (0-5/HPF); WBC Urine 0-1/HPF (0-5/HPF)
--- NOTE | 2022-02-08 02:14 | DI.CT.S_ITS ---
PROCEDURE: CT ABDOMEN PELVIS W CON INDICATIONS: abd pain, epigastric TECHNIQUE: After the administration of intravenous contrast, axial sections acquired from the lung bases to the pubic symphysis. Coronal and sagittal reformats were performed. For radiation dose reduction, the following was used: automated exposure control, adjustment of mA and/or kV according to patient size. COMPARISON: None. FINDINGS: Image quality: Excellent. Lung bases: Unremarkable. Heart: No significant findings. ABDOMEN: Liver: Unremarkable. Gallbladder: Cholecystectomy. Biliary ducts: Unremarkable. Pancreas: Unremarkable. Spleen: Unremarkable. Adrenal Glands: Unremarkable. Kidneys and Ureters: Unremarkable. Stomach and Bowel: Stomach, small bowel loops, and colon are unremarkable. Peritoneum: No abnormal intraperitoneal fluid. No free air. Ventral Wall: No hernias. Abdominal Nodes: No retroperitoneal or mesenteric adenopathy by size criteria. Vessels: Aorta and inferior vena cava are normal in size. PELVIS: Pelvic Organs: Unremarkable. Left ovarian cyst with thin peripheral enhancement likely a corpus luteum cyst. IUD noted. Ovaries and uterus otherwise normal. Bladder: Unremarkable. Pelvic Nodes: No enlarged lymph nodes. Miscellaneous: No hernias are seen. Bones: Unremarkable. IMPRESSION: No acute finding. Cholecystectomy. No significant change from preliminary report. Dictated by: Cortez Dick M.D. on 02/08/2022 at 9:04 Approved by: Cortez Dick M.D. on 02/08/2022 at 9:06
--- NOTE | 2022-02-08 02:14 | DI.RAD.S_ITS ---
PROCEDURE: XR CHEST 1V INDICATIONS: abd pain, epigastric TECHNIQUE: One view of the chest was acquired. COMPARISON: None. FINDINGS: Surgical changes and devices: None. Lungs and pleura: Lungs are clear. No pleural effusions or pneumothorax. Mediastinum: Mediastinal contours appear normal. Heart size is normal. Bones and chest wall: No suspicious bony lesions. Overlying soft tissues appear unremarkable. IMPRESSION: No acute cardiopulmonary process demonstrated radiographically. No significant change from preliminary report. Dictated by: Cortez Dick M.D. on 02/08/2022 at 9:06 Approved by: Cortez Dick M.D. on 02/08/2022 at 9:06
[2022-02-08 02:19] LABS: Add Manual Diff / Slide Review NO; Basophils Absolute Auto 0 /uL (0-100); Basophils Percent Auto 0.3 % (0-2); Eosinophils Absolute Auto 300 /uL (0-450); Eosinophils Percent Auto 2.5 % (2-4); Hematocrit 41.3 % (36-46); Hemoglobin 13.8 g/dL (12.0-16.0); Lymphocytes Absolute Auto 3500 /uL (1100-4500); Lymphocytes Percent Auto 27.7 % (25-40); Mean Corpuscular HGB Conc 33.3 % (30-36); Mean Corpuscular Hemoglobin 30.1 PG (26-34); Mean Corpuscular Volume 90.3 fL (80-100); Monocytes Absolute Auto 700 /uL (0-900); Monocytes Percent Auto 5.6 % (3-14); Neutrophils Absolute Auto 8200 /uL (1500-7000); Neutrophils Percent Auto 63.9 % (50-75); Platelet Count 385 X10^3/uL (150-400); Red Blood Cell Count 4.58 X10^6/uL (4.0-5.2); Red Cell Distribution Width 12.9 % (11.6-14.8); White Blood Cell Count 12.8 X10^3/uL (4.5-11.0)
[2022-02-08] MEDS: PANTOPRAZOLE 40 MG VIAL IV (02:22)
[2022-02-08 02:24] LABS: Alanine Aminotransferase 24 IU/L (<35); Albumin 4.7 g/dL (3.5-5.0); Alkaline Phosphatase 120 U/L (38-126); Aspartate Aminotransferase 24 IU/L (14-36); BUN Creatinine Ratio 14.1 (6-22); Bilirubin Total 0.8 mg/dL (0.2-1.3); Blood Urea Nitrogen 9 mg/dL (7-17); Calcium 9.1 mg/dL (8.4-10.2); Carbon Dioxide 26 mmol/L (22-32); Chloride 100 mmol/L (98-107); Creatine Kinase 63 U/L (30-135); Estimated Glomerular Filt Rate > 60 mL/min (>60); Globulin 4.6 g/dL (1.7-4.1); Glucose 104 mg/dL (70-100); HEMOLYSIS 16 (0-50); Lipase 47 U/L (23-300); Potassium 3.8 mmol/L (3.4-5.1); Sodium 138 mmol/L (137-145); Total Protein 9.3 g/dL (6.3-8.2)
[2022-02-08 02:35] LABS: Troponin I < 0.012 ng/mL (0.01-0.034)
[2022-02-08] MEDS: MAG HYDROX/ALUM/SIMETH 30 ML UDC PO (05:21)
[2022-02-08] MEDS: LIDOCAINE VISCOUS 2% 15 ML SOLUTION PO (05:21)
== END 2022-02-08 06:40 | disposition home or self-care (01) ==
PROVIDERS: Emergency Provider Emergency Medicine
DX: N83.202 Unspecified ovarian cyst, left side (principal); R10.13 Epigastric pain
CPT/HCPCS: 36415; 71045; 74177; 80053; 81003; 81015; 81025; 82550; 83690; 84484; 85025; 93005; 93010; 96374; 99284; C9113; Q9967

== ENCOUNTER 2022-12-05 04:19 | Emergency (ER) | payer OTHER, SELFPAY ==
[2022-12-05 04:27] VITALS: BP 127/60; PULSE 91; RESP 16; TEMP 36.8; O2SAT 97; BMI 38.5
[2022-12-05 04:37] LABS: Appearance Urine UA CLEAR; Bilirubin Urine UA NEGATIVE (NEGATIVE); Color Urine UA YELLOW; Glucose Urine UA NEGATIVE (Negative); Ketones Urine UA NEGATIVE (NEGATIVE); Leukocyte Esterase Urine UA NEGATIVE (NEGATIVE); Nitrite Urine UA NEGATIVE (Negative); Occult Blood Urine UA 2+ (Negative); Protein Urine UA NEGATIVE (Negative); Specific Gravity Urine UA >=1.030 (1.000-1.035)
--- NOTE | 2022-12-05 04:38 | ED_ITS ---
HPI - General Adult General Chief complaint: Abdominal Pain Stated complaint: abd pain Time Seen by Provider: 12/05/22 04:23 Source: patient Mode of arrival: Ambulatory History of Present Illness HPI narrative: 27-year-old female. Currently on antibiotics for a urinary tract infection. This recently seen at an outside facility for lower abdominal pelvic pain. Had a CT scan performed what she states she was told that everything was unremarkable however there was some concern about the placement of an IUD. Nothing specifically was done regarding this. She continued to have discomfort. She went to a walk-in clinic a couple days later. She states that the provider there did an ultrasound and then subsequently removed the IUD. The pelvic discomfort that she was having is now gone. They took a urine sample during that visit. That is where she was told she would a urinary tract infection. She was completed 5 days of Macrobid. She is here because overnight she started have upper abdominal pain and nausea. She took some nausea medicine prior to arrival and she states that her nausea is now better her she is still having epigastric pain. She also took some [place] prior to arrival but she is still having pain. Related Data Previous Rx's Medication Instructions Recorded docusate sodium 100 mg capsule 100 mg PO BID prevent constipation 08/29/19 from pain medicine #30 caps oxycodone 5 mg tablet 5 mg PO Q4H PRN post operative 08/29/19 pain #30 tabs famotidine 40 mg tablet (Pepcid) 40 mg PO DAILY #30 tabs 02/08/22 tramadol 50 mg tablet 50 mg PO Q6H PRN pain #10 tabs 02/08/22 sucralfate 100 mg/mL oral 10 ml PO QACHS #414 mL 12/05/22 suspension (Carafate) Allergies Allergy/AdvReac Type Severity Reaction Status Date / Time No Known Drug Allergies Allergy Verified 08/01/20 22:22 Review of Systems Constitutional Constitutional: Reports system reviewed and no additional complaints, except as documented Cardiovascular Cardiovascular: Reports system reviewed and no additional complaints, except as documented Respiratory Respiratory: Reports system reviewed and no additional complaints, except as documented Gastrointestinal Gastrointestinal: Reports system reviewed and no additional complaints, except as documented Genitourinary Genitourinary: Reports system reviewed and no additional complaints, except as documented Integumentary/Breasts Skin/Breast: Reports system reviewed and no additional complaints, except as documented Patient History Medical History PTSD (post-traumatic stress disorder) Major depression (~2014) Asthma Surgical History Hx of section Family History Mother Hypertension Gallstones Father Diabetes mellitus Social History marital status: household members: spouse and children occupational status: employed Smoking Status: Never smoker alcohol intake: current substance use type: does not use Smoking Status: Never smoker alcohol intake frequency: holidays/special occasions only Substance Use Type: does not use Exam Initial Vital Signs Initial Vital Signs: Vital Signs Temperature 98.3 F 12/05/22 04:27 Pulse Rate 91 H 12/05/22 04:27 Respiratory Rate 16 12/05/22 04:27 Blood Pressure 127/60 12/05/22 04:27 Pulse Oximetry 97 12/05/22 04:27 Oxygen Delivery Method Room Air 12/05/22 04:27 HENMT Head: normal to inspection and normocephalic Resp Effort & Inspection: normal respiratory effort Auscultation: clear to auscultation bilaterally Cardio Rate: regular rate Rhythm: regular rhythm GI Inspection: normal to inspection and non-distended Palpation: soft, No firm, No guarding and tender (Epigastric pain) Back/Spine/Pelvis Back: No CVA tenderness Neuro General: patient alert and moves all extremities Course Orders Ordered: ED Orders 12/05/22 04:25 UA Complete [Urinalysis and Microscopic] Stat 12/05/22 04:34 Complete Blood Count AUTO DIFF Stat Comprehensive Metabolic Panel Stat Lipase Stat Discontinued Medications Al Hydrox/Mg Hydrox/Simethicone 20 ml/ Lidocaine HCl 15 ml 0 ml PO NOW ONE Stop: 12/05/22 05:18 Last Admin: 12/05/22 05:21 Dose: 35 ml Documented By: Pantoprazole Sodium (Pantoprazole 40 Mg Vial) 40 mg IV NOW ONE Stop: 12/05/22 05:18 Last Admin: 12/05/22 05:21 Dose: 40 mg Documented By: Vital Signs Vital signs: Vital Signs - 8 hr 12/05/22 04:27 Temperature 98.3 F Pulse Rate 91 H Respiratory Rate 16 Blood Pressure 127/60 Pulse Oximetry 97 Oxygen Delivery Method Room Air Medical Decision Making Lab Data Lab results reviewed: Yes I reviewed the patient's lab results. 12/05/22 04:34 12/05/22 04:34 Labs: Lab Results 12/05/22 12/05/22 Range/Units 04:25 04:34 WBC 14.8 H (4.5-11.0) X10^3/uL RBC 4.41 (4.0-5.2) X10^6/uL Hgb 13.6 (12.0-16.0) g/dL Hct 40.1 (36-46) % MCV 90.9 (80-100) fL MCH 30.8 (26-34) PG MCHC 33.9 (30-36) % RDW 12.8 (11.6-14.8) % Plt Count 387 (150-400) X10^3/uL Neut % (Auto) 75.1 H (50-75) % Lymph % (Auto) 17.1 L (25-40) % [place] % (Auto) 6.1 (3-14) % Eos % (Auto) 1.4 L (2-4) % Baso % (Auto) 0.3 (0-2) % Neut # (Auto) 56315 H (6210-2364) /uL Lymph # (Auto) 2500 (2078-2790) /uL [place] # (Auto) 900 (0-900) /uL Eos # (Auto) 200 (0-450) /uL Baso # (Auto) 0 (0-100) /uL Sodium 138 (137-145) mmol/L Potassium 4.0 (3.4-5.1) mmol/L Chloride 104 (98-107) mmol/L Carbon Dioxide 25 (22-32) mmol/L BUN 16 (7-17) mg/dL Creatinine 0.68 (0.52-1.04) mg/dL Estimated GFR > 60 (>60) mL/min BUN/Creatinine Ratio 23.5 H (6-22) Glucose 116 H (70-100) mg/dL Calcium 9.2 (8.4-10.2) mg/dL Total Bilirubin 0.3 (0.2-1.3) mg/dL AST 22 (14-36) IU/L ALT 23 (<35) IU/L Alkaline Phosphatase 91 (38-126) U/L Total Protein 8.3 H (6.3-8.2) g/dL Albumin 4.6 (3.5-5.0) g/dL Globulin 3.7 (1.7-4.1) g/dL Albumin/Globulin Ratio 1.2 (1.0-2.8) Lipase 64 (23-300) U/L Urine Color Yellow Urine Appearance Clear Urine pH 5.5 (4.5-8.0) Ur Specific Ora >=1.030 H (1.000-1.035) Urine Protein Negative (Negative) Urine Glucose (UA) Negative (Negative) g/dL Urine Ketones Negative (NEGATIVE) Urine Occult Blood 2+ H (Negative) Urine Nitrate Negative (Negative) Urine Bilirubin Negative (NEGATIVE) Urine Urobilinogen 1.0 (0.2) E.U./dL Ur Leukocyte Esterase Negative (NEGATIVE) Urine RBC 1-5/hpf (0-5/HPF) Urine WBC 0-1/hpf (0-5/HPF) Ur Squamous Epith Cells 5-10 /hpf H (0-5/HPF) Urine Bacteria Moderate (10-30) H (None) Urine Mucus 2+ H (Negative) Ur Culture Indicated? Cult not indicated Point of Care Testing Test Results Negative Urine Dip Bedside Urine Glucose Negative Bedside Urine Bilirubin - Negative Bedside Urine Ketone - Negative Urine Specific Ora 1.030 Bedside Urine Occult Blood +++ Bedside Urine pH 6.0 Bedside Urine Protein - Negative Bedside Urine Urobilinogen - Negative Bedside Urine Nitrite - Negative Bedside Urine Leukocytes - Negative Esterase Point of care testing: Point of Care Testing Test Results Negative Urine Dip Bedside Urine Glucose Negative Bedside Urine Bilirubin - Negative Bedside Urine Ketone - Negative Urine Specific Ora 1.030 Bedside Urine Occult Blood +++ Bedside Urine pH 6.0 Bedside Urine Protein - Negative Bedside Urine Urobilinogen - Negative Bedside Urine Nitrite - Negative Bedside Urine Leukocytes - Negative Esterase MDM Narrative Medical decision making narrative: Minimal improvement after GI cocktail and Protonix. She does have leukocytosis. Her LFTs and lipase are unremarkable. She has had her gallbladder removed. She states that she was told that her white blood cell count was elevated when she was seen several days ago at the outside emergency department. She does have a relatively benign abdominal exam. Had a discussion with her regarding her symptoms. We talked about repeating a CT scan today because the pain that she is having now is different than the pain that she was having several days ago for which she was evaluated. She understands the reasons we would be doing the CT scan. I have low suspicion that this is pancreatitis, bowel obstruction, appendicitis, or other acute surgical intra-abdominal pathology. She understands that CT scans would not show things like stomach ulcers or reflux disease or even esophagitis. After this discussion she would like to hold on repeating a CT scan for now. We will discharge her home with a prescription for Carafate. She does have a GI doctor. I did inform her that if her symptoms worsen or she develops new symptoms or starts having fevers or worsening pain or changes in any way that she should return to the emergency department for further evaluation. She expressed understanding and agreement. Since she is completed a 5 day course of antibiotics I will have her stop taking the Macrobid as this maybe contributing to some of the discomfort. Discharge Plan Departure Patient Disposition: Home Clinical Impression: Abdominal pain Instructions: DI for Abdominal Pain-Adult Activity Restrictions/Additional Instructions: Continue to take all of your medications as directed however I recommend that you stop taking the Macrobid/nitrofurantoin that you have been taking for the urinary tract infection. Start taking the Carafate as directed. This was sent to [facility] here in [place]. Contact your primary doctor for a follow-up. Return to the emergency department for new or worsening symptoms. Prescriptions: New sucralfate [Carafate] 100 mg/mL suspension 10 ml PO QACHS Qty: 414 2RF No Action oxycodone 5 mg tablet 5 mg PO Q4H PRN (Reason: post operative pain) Qty: 30 0RF docusate sodium 100 mg capsule 100 mg PO BID Qty: 30 0RF famotidine [Pepcid] 40 mg tablet 40 mg PO DAILY Qty: 30 0RF tramadol 50 mg tablet 50 mg PO Q6H PRN (Reason: pain) Qty: 10 0RF Referrals: Nadia Henderson ARNP [Primary Care Provider] - Stand Alone Forms: Patient Portal/API, Work Release Note
[2022-12-05 04:48] LABS: Bacteria Urine Moderate (10-30); RBC Urine 1-5/HPF (0-5/HPF); Squamous Epithelial Cell Urine 5-10 /HPF (0-5/HPF); WBC Urine 0-1/HPF (0-5/HPF); pH Urine UA 5.5 (4.5-8.0)
[2022-12-05 04:49] LABS: Culture Indicated Urine Cult Not Indicated; Mucus Urine 2+ (Negative)
[2022-12-05 04:50] LABS: Add Manual Diff / Slide Review NO; Basophils Absolute Auto 0 /uL (0-100); Basophils Percent Auto 0.3 % (0-2); Eosinophils Absolute Auto 200 /uL (0-450); Eosinophils Percent Auto 1.4 % (2-4); Hematocrit 40.1 % (36-46); Hemoglobin 13.6 g/dL (12.0-16.0); Lymphocytes Absolute Auto 2500 /uL (1100-4500); Lymphocytes Percent Auto 17.1 % (25-40); Mean Corpuscular HGB Conc 33.9 % (30-36); Mean Corpuscular Hemoglobin 30.8 PG (26-34); Mean Corpuscular Volume 90.9 fL (80-100); Monocytes Absolute Auto 900 /uL (0-900); Monocytes Percent Auto 6.1 % (3-14); Neutrophils Absolute Auto 11100 /uL (1500-7000); Neutrophils Percent Auto 75.1 % (50-75); Platelet Count 387 X10^3/uL (150-400); Red Blood Cell Count 4.41 X10^6/uL (4.0-5.2); Red Cell Distribution Width 12.8 % (11.6-14.8); White Blood Cell Count 14.8 X10^3/uL (4.5-11.0)
[2022-12-05 04:51] LABS: Albumin 4.6 g/dL (3.5-5.0); Albumin Globulin Ratio 1.2 (1.0-2.8); Alkaline Phosphatase 91 U/L (38-126); Aspartate Aminotransferase 22 IU/L (14-36); BUN Creatinine Ratio 23.5 (6-22); Bilirubin Total 0.3 mg/dL (0.2-1.3); Blood Urea Nitrogen 16 mg/dL (7-17); Calcium 9.2 mg/dL (8.4-10.2); Carbon Dioxide 25 mmol/L (22-32); Chloride 104 mmol/L (98-107); Estimated Glomerular Filt Rate > 60 mL/min (>60); Globulin 3.7 g/dL (1.7-4.1); Glucose 116 mg/dL (70-100); HEMOLYSIS < 15 (0-50); Lipase 64 U/L (23-300); Sodium 138 mmol/L (137-145); Total Protein 8.3 g/dL (6.3-8.2)
[2022-12-05 04:52] LABS: Alanine Aminotransferase 23 IU/L (<35)
[2022-12-05] MEDS: MAG HYDROX/ALUMINUM/SIMETH SUS 20 ML, LIDOCAINE VISCOUS 2% 15 ML PO (05:21)
[2022-12-05] MEDS: PANTOPRAZOLE 40 MG VIAL IV (05:21)
[2022-12-05 06:02] VITALS: BP 111/63; PULSE 81; RESP 16; O2SAT 98
== END 2022-12-05 06:03 | disposition home or self-care (01) ==
PROVIDERS: Emergency Provider Emergency Medicine; PCP Nurse Practitioner
DX: R10.10 Upper abdominal pain, unspecified (principal); R11.0 Nausea
CPT/HCPCS: 36415; 80053; 81001; 81003; 81025; 83690; 85025; 96374; 99284; C9113

== ENCOUNTER → 2022-12-21 | Outpatient (CLI) | payer OTHER, SELFPAY | PROVIDERS: PCP Nurse Practitioner; Referring Provider Family Medicine; Visit Provider Family Medicine | DX: Z23 Encounter for immunization (principal) | CPT/HCPCS: 90471; 90686 ==

== ENCOUNTER 2023-01-17 12:00 | Outpatient (RCR) | payer OTHER, SELFPAY ==
--- NOTE | 2022-10-22 15:22 | PT.OIE ---
Current Diagnoses Plantar fascial fibromatosis (10/22/22) Past Medical History (Last Reviewed 02/08/22 @ 02:13 by Laverne Qureshi DO) Asthma Major depression (~2014) PTSD (post-traumatic stress disorder) Past Surgical History (Last Reviewed 02/08/22 @ 02:13 by Laverne Qureshi DO) Hx of section Visit Care Team Role Provider Type KATE Mulligan Primary Care Provider Non-Staff Specialty: Medical Address: [address] [place] [address], [phone] Email: Attending Provider Family Provider Referring Provider Specialty: Address: Phone: Fax: Email: Physical Therapy Initial Evaluation PT-OP-A Visit Information Start: 10/22/22 11:57 Freq: Status: Active Protocol: Document 10/22/22 10:30 DCW (Rec: 10/22/22 12:10 DCW [id number]) Out-Patient Physical Therapy Visit Information Visit Information Visit Type Initial Evaluation Visit Start Time 10:30 Visit Stop Time 11:15 Total Visit Minutes 45 Visit Number 1 Number of BUSINESS OFFICE TECHNICIAN Visits 0 Evaluation Information Evaluation Date 10/22/22 PT-OP-B Current Condition Start: 10/22/22 11:57 Freq: Status: Active Protocol: Document 10/22/22 10:30 DCW (Rec: 10/22/22 12:10 DCW [id number]) Current Condition History of Current Condition Onset Date 1+ month history Current Complaints bilateral foot/heel pain History of Current Condition Pt is a 27 year old female presenting with a more than one month history of bilateral heel and foot pain. Pt reports left has been worse than right. Symptoms at their worst when first getting up in the morning, and standing after an extended time sitting . Pain largely concentrated on plantar surface of her posterior feet and back in the posterior heel. Pt was previously referred to a desk monitor, who diagnosed Plantar Fasciitis. Symptoms also worse if she attempts to run after her three year old son or jump. No specific initial injury, just noticed it was bothering her one day. PT-OP-C Subjective Start: 10/22/22 11:57 Freq: Status: Active Protocol: Document 10/22/22 10:30 DCW (Rec: 10/22/22 12:10 DCW [id number]) OP-PT Subjective Patient Comments Patient Comments When I get up in the morning, it looks like I'm walking around like a toddler. Patient Questionnaires Foot & Ankle Ability Measure- ADL and Sports FAAM-ADL Score 41.67% FAAM-ADL Impairment 40 to 59% Impaired (Score 33- 49) FAAM-Sport Score 25% FAAM-Sport Impairment 60 to 79% Impaired (Score 6-11 ) Lower Extremity Functional Scale LEFS Score 40/80 = 50% PT-OP-F Manual Assessment Start: 10/22/22 11:57 Freq: Status: Active Protocol: Document 10/22/22 10:30 DCW (Rec: 10/22/22 15:07 DCW [id number]) Manual Assessments Soft Tissue Assessment Soft Tissue Mobility Assessment Tenderness to palpation 2/4: Pain with wincing bilateral plantar surface along heel, posterior heel PT-OP-J Posture/Palpation/Skin Start: 10/22/22 11:57 Freq: Status: Active Protocol: Document 10/22/22 10:30 DCW (Rec: 10/22/22 15:07 DCW [id number]) Posture Evaluation Position Standing Evaluation View Anterior Ankle/Foot Posture (L) Pronated,(R) Pronated Foot Arch (L) Low Arch,(R) Low Arch PT-OP-K Range of Motion Start: 10/22/22 11:57 Freq: Status: Active Protocol: Document 10/22/22 10:30 DCW (Rec: 10/22/22 15:07 DCW [id number]) Ankle and Foot Goniometric Range of Motion Ankle and Foot Right Active Dorsiflexion with Knee Flexed 5 Plantarflexion 55 Inversion 30 Eversion 20 Comments Lacking 10? from neutral with DF - knee extended Left Active Testing Position Sitting Dorsiflexion with Knee Flexed 5 Plantarflexion 60 Inversion 30 Eversion 25 Comments Lacking 5? from neutral with DF - knee extended PT-OP-Q Treatments Start: 10/22/22 11:57 Freq: Status: Active Protocol: Document 10/22/22 10:30 DCW (Rec: 10/22/22 12:10 DCW [id number]) Therapeutic Exercises Sitting Exercises Self-STM Sitting Exercise Name Rolling foot on ball Comments Discussed frozen water bottle Intrinsic Foot Strengthening Sitting Exercise Name Jefferson pick-up, Towel Scrunch Ankle flexion Sitting Exercise Name 4-way ankle flexion Side bilateral Resistance Green PT-OP-T Assessment and Plan Start: 10/22/22 11:57 Freq: Status: Active Protocol: Document 10/22/22 10:30 DCW (Rec: 10/22/22 15:22 DCW [id number]) Physical Therapy Assessment Rehab Potential Rehabilitation Potential Good Evaluation Complexity Number of Personal Factors/Comorbidities 1-2 Number of Body Systems Impaired 1-2 Clinical Presentation at Evaluation Evolving Impairments Impairments Functional Activities, Functional Mobility,Gait,Pain, ROM,Soft Tissue Mobility, Strength Goals Two Impairment Gastroc tightness limits ankle ROM and creates increased force through plantar surface bilaterally Supervisor Pumping Goal (LTG) Pt to exhibit decreased gastroc tone by improving bilateral AROM DF with knee extended to at least neutral positioning to improve swing phase of gait LTG Duration 12/22/22 One Impairment Pt does not have an appropriate home exercise program Short Term Goal (STG) Pt to be independent and compliant with an appropriate HEP STG Duration 11/21/22 Assessment Summary Assessment Pt presents with signs and symptoms consistent with referring diagnosis of bilateral plantar fasciitis. Pt experiences increased symptoms first getting up in the morning and following extended time sitting. Limits pt's ability to run and jump when playing with her young son. In standing, pt shows some slight pronation and decreased arch, as well as calf tightness limiting her ankle ROM, especially dorsiflexion with knee extended. Pt should benefit from skilled therapy focusing on strengthening intrinsic foot musculature, stretching and STM of bilateral gastrosoleus, modalities focusing on decreasing inflammation, and education regarding gait and footwear. Physical Therapy Plan Frequency and Duration Frequency of Treatment 2x/Week Plan of Care Start Date 10/22/22 Plan of Care End Date 12/22/22 Therapeutic Interventions Therapeutic Interventions Gait Training,Home Exercise Program,Joint Mobilizations, Manual Therapy,Neuromuscular Re-education,Patient/Caregiver Education,Self-Care/Home Management,Soft Tissue Mobilization,Taping, Therapeutic Activities, Therapeutic Exercises Modalities Cold Pack/Ice Massage,Electric Stimulation,Hot Packs, Ultrasound Next Visit Focus/Plan Next Note Type Treatment Note Next Visit Plan Stretching, calf STM, foot strengthening, Ultrasound
--- NOTE | 2022-10-22 15:22 | PT.OPPOC ---
Physical, Occupational & Speech Therapy At [facility] Current Diagnoses Plantar fascial fibromatosis (10/22/22) Visit Care Team Role Provider Type KATE Mulligan Primary Care Provider Non-Staff Specialty: Medical Address: [address] , [place], [address] Email: Attending Provider Family Provider Referring Provider Specialty: Address: Phone: Fax: Email: Plan Of Care PT-OP-T Assessment and Plan Start: 10/22/22 11:57 Freq: Status: Active Protocol: Document 10/22/22 10:30 DCW (Rec: 10/22/22 15:22 DCW [id number]) Physical Therapy Assessment Rehab Potential Rehabilitation Potential Good Evaluation Complexity Number of Personal Factors/Comorbidities 1-2 Number of Body Systems Impaired 1-2 Clinical Presentation at Evaluation Evolving Impairments Impairments Functional Activities, Functional Mobility,Gait,Pain, ROM,Soft Tissue Mobility, Strength Goals Two Impairment Gastroc tightness limits ankle ROM and creates increased force through plantar surface bilaterally Fci Goal (LTG) Pt to exhibit decreased gastroc tone by improving bilateral AROM DF with knee extended to at least neutral positioning to improve swing phase of gait LTG Duration 12/22/22 One Impairment Pt does not have an appropriate home exercise program Short Term Goal (STG) Pt to be independent and compliant with an appropriate HEP STG Duration 11/21/22 Assessment Summary Assessment Pt presents with signs and symptoms consistent with referring diagnosis of bilateral plantar fasciitis. Pt experiences increased symptoms first getting up in the morning and following extended time sitting. Limits pt's ability to run and jump when playing with her young son. In standing, pt shows some slight pronation and decreased arch, as well as calf tightness limiting her ankle ROM, especially dorsiflexion with knee extended. Pt should benefit from skilled therapy focusing on strengthening intrinsic foot musculature, stretching and STM of bilateral gastrosoleus, modalities focusing on decreasing inflammation, and education regarding gait and footwear. Physical Therapy Plan Frequency and Duration Frequency of Treatment 2x/Week Plan of Care Start Date 10/22/22 Plan of Care End Date 12/22/22 Therapeutic Interventions Therapeutic Interventions Gait Training,Home Exercise Program,Joint Mobilizations, Manual Therapy,Neuromuscular Re-education,Patient/Caregiver Education,Self-Care/Home Management,Soft Tissue Mobilization,Taping, Therapeutic Activities, Therapeutic Exercises Modalities Cold Pack/Ice Massage,Electric Stimulation,Hot Packs, Ultrasound Next Visit Focus/Plan Next Note Type Treatment Note Next Visit Plan Stretching, calf STM, foot strengthening, Ultrasound Plan of Care Dates Plan of Care Start Date 10/22/22 Plan of Care End Date 12/22/22 Electronically Signed by: Nadeem Wolfe, PT 10/22/22 1498 If you are in agreement with this Plan of Care, please return a signed and dated copy. I have reviewed this Plan of Care and certify that the skilled therapy services above are required to meet the patient?s needs. Physician Signature Date Printed Name and Credentials Clinical Instructor Signature Printed Name and Credentials
--- NOTE | 2022-11-12 10:32 | PT.OTN ---
Current Diagnoses Plantar fascial fibromatosis (11/12/22) Physical Therapy Treatment Note PT-OP-A Visit Information Start: 10/22/22 11:57 Freq: Status: Active Protocol: Document 11/12/22 09:48 DCW (Rec: 11/12/22 10:32 DCW [id number]) Out-Patient Physical Therapy Visit Information Visit Information Visit Type Treatment Note Visit Start Time 09:48 Visit Stop Time 10:30 Total Visit Minutes 42 Visit Number 2 Number of CASE WORK AIDE Visits 0 Evaluation Information Evaluation Date 10/22/22 PT-OP-B Current Condition Start: 10/22/22 11:57 Freq: Status: Active Protocol: Document 10/22/22 10:30 DCW (Rec: 10/22/22 12:10 DCW [id number]) Current Condition History of Current Condition Onset Date 1+ month history Current Complaints bilateral foot/heel pain History of Current Condition Pt is a 27 year old female presenting with a more than one month history of bilateral heel and foot pain. Pt reports left has been worse than right. Symptoms at their worst when first getting up in the morning, and standing after an extended time sitting . Pain largely concentrated on plantar surface of her posterior feet and back in the posterior heel. Pt was previously referred to a arcade attendant, who diagnosed Plantar Fasciitis. Symptoms also worse if she attempts to run after her three year old son or jump. No specific initial injury, just noticed it was bothering her one day. PT-OP-C Subjective Start: 10/22/22 11:57 Freq: Status: Active Protocol: Document 11/12/22 09:48 DCW (Rec: 11/12/22 10:32 DCW [id number]) OP-PT Subjective Patient Comments Patient Comments Pt has been performing HEP, not as consistent as I should, but I have been doing them. Is feeling a little better. PT-OP-F Manual Assessment Start: 10/22/22 11:57 Freq: Status: Active Protocol: Document 10/22/22 10:30 DCW (Rec: 10/22/22 15:07 DCW [id number]) Manual Assessments Soft Tissue Assessment Soft Tissue Mobility Assessment Tenderness to palpation 2/4: Pain with wincing bilateral plantar surface along heel, posterior heel PT-OP-J Posture/Palpation/Skin Start: 10/22/22 11:57 Freq: Status: Active Protocol: Document 10/22/22 10:30 DCW (Rec: 10/22/22 15:07 DCW [id number]) Posture Evaluation Position Standing Evaluation View Anterior Ankle/Foot Posture (L) Pronated,(R) Pronated Foot Arch (L) Low Arch,(R) Low Arch PT-OP-K Range of Motion Start: 10/22/22 11:57 Freq: Status: Active Protocol: Document 10/22/22 10:30 DCW (Rec: 10/22/22 15:07 DCW [id number]) Ankle and Foot Goniometric Range of Motion Ankle and Foot Right Active Dorsiflexion with Knee Flexed 5 Plantarflexion 55 Inversion 30 Eversion 20 Comments Lacking 10? from neutral with DF - knee extended Left Active Testing Position Sitting Dorsiflexion with Knee Flexed 5 Plantarflexion 60 Inversion 30 Eversion 25 Comments Lacking 5? from neutral with DF - knee extended PT-OP-Q Treatments Start: 10/22/22 11:57 Freq: Status: Active Protocol: Document 11/12/22 09:48 DCW (Rec: 11/12/22 10:32 DCW [id number]) Therapeutic Exercises Standing Exercises Calf Raises Standing Exercise Name Eccentric SL calf raises Side bilateral Calf stretch Standing Exercise Name Step stretch, GISELA, Runner's stretch Side bilateral Manual Therapy Treatment Soft Tissue Mobilization Plantar Fascia Body Location B Plantar Fascia Mobilization Type Cross-Friction Calf Body Location B Calf Mobilization Type Instrument Assisted,Rolling Intensity/Depth Moderate PT-OP-R Modalities Start: 10/22/22 11:57 Freq: Status: Active Protocol: Document 11/12/22 09:48 DCW (Rec: 11/12/22 10:32 DC [id number]) Ultrasound Therapy Treatment Calf Treatment Duration (minutes) 10 Patient Position Prone Coupling Medium Ultrasound Gel Applicator Size (cm2) 5 Frequency Setting (mHz) 3 Mode Setting Continuous Intensity Setting (w/cm2) 1.0 Comments B calf and plantar surface PT-OP-T Assessment and Plan Start: 10/22/22 11:57 Freq: Status: Active Protocol: Document 11/12/22 09:48 DCW (Rec: 11/12/22 10:32 [facility] [id number]) Physical Therapy Assessment Impairments Impairments Functional Activities, Functional Mobility,Gait,Pain, ROM,Soft Tissue Mobility, Strength Goals Two Impairment Gastroc tightness limits ankle ROM and creates increased force through plantar surface bilaterally Hvac Estimator Goal (LTG) Pt to exhibit decreased gastroc tone by improving bilateral AROM DF with knee extended to at least neutral positioning to improve swing phase of gait LTG Duration 12/22/22 One Impairment Pt does not have an appropriate home exercise program Short Term Goal (STG) Pt to be independent and compliant with an appropriate HEP STG Duration 11/21/22 Assessment Summary Assessment Very good response to treatment today, decreased calf tone following US, STM, and stretching, able to exit clinic without any lingering calf or plantar pain. Agreeable to introducing calf stretching and eccentric heel raises to HEP Physical Therapy Plan Frequency and Duration Frequency of Treatment 2x/Week Plan of Care Start Date 10/22/22 Plan of Care End Date 12/22/22 Therapeutic Interventions Therapeutic Interventions Gait Training,Home Exercise Program,Joint Mobilizations, Manual Therapy,Neuromuscular Re-education,Patient/Caregiver Education,Self-Care/Home Management,Soft Tissue Mobilization,Taping, Therapeutic Activities, Therapeutic Exercises Modalities Cold Pack/Ice Massage,Electric Stimulation,Hot Packs, Ultrasound Next Visit Focus/Plan Next Note Type Treatment Note Next Visit Plan Stretching, calf STM, foot strengthening, Ultrasound
--- NOTE | 2022-12-10 09:48 | PT.OTN ---
Current Diagnoses Plantar fascial fibromatosis (12/10/22) Physical Therapy Treatment Note PT-OP-A Visit Information Start: 10/22/22 11:57 Freq: Status: Active Protocol: Document 12/10/22 09:10 DCW (Rec: 12/10/22 09:47 DCW [id number]) Out-Patient Physical Therapy Visit Information Visit Information Visit Type Treatment Note Visit Note 10 minutes late Visit Start Time 09:10 Visit Stop Time 09:45 Total Visit Minutes 35 Visit Number 3 Number of BONDING MACHINE OPERATOR Visits 0 Evaluation Information Evaluation Date 10/22/22 PT-OP-B Current Condition Start: 10/22/22 11:57 Freq: Status: Active Protocol: Document 10/22/22 10:30 DCW (Rec: 10/22/22 12:10 DCW [id number]) Current Condition History of Current Condition Onset Date 1+ month history Current Complaints bilateral foot/heel pain History of Current Condition Pt is a 27 year old female presenting with a more than one month history of bilateral heel and foot pain. Pt reports left has been worse than right. Symptoms at their worst when first getting up in the morning, and standing after an extended time sitting . Pain largely concentrated on plantar surface of her posterior feet and back in the posterior heel. Pt was previously referred to a rehabilitation therapy technician, who diagnosed Plantar Fasciitis. Symptoms also worse if she attempts to run after her three year old son or jump. No specific initial injury, just noticed it was bothering her one day. PT-OP-C Subjective Start: 10/22/22 11:57 Freq: Status: Active Protocol: Document 12/10/22 09:10 DCW (Rec: 12/10/22 09:47 DCW [id number]) OP-PT Subjective Patient Comments Patient Comments I still feel pain, some days are worse than others. PT-OP-F Manual Assessment Start: 10/22/22 11:57 Freq: Status: Active Protocol: Document 10/22/22 10:30 DCW (Rec: 10/22/22 15:07 DCW [id number]) Manual Assessments Soft Tissue Assessment Soft Tissue Mobility Assessment Tenderness to palpation 2/4: Pain with wincing bilateral plantar surface along heel, posterior heel PT-OP-J Posture/Palpation/Skin Start: 10/22/22 11:57 Freq: Status: Active Protocol: Document 10/22/22 10:30 DCW (Rec: 10/22/22 15:07 DCW [id number]) Posture Evaluation Position Standing Evaluation View Anterior Ankle/Foot Posture (L) Pronated,(R) Pronated Foot Arch (L) Low Arch,(R) Low Arch PT-OP-K Range of Motion Start: 10/22/22 11:57 Freq: Status: Active Protocol: Document 10/22/22 10:30 DCW (Rec: 10/22/22 15:07 DCW [id number]) Ankle and Foot Goniometric Range of Motion Ankle and Foot Right Active Dorsiflexion with Knee Flexed 5 Plantarflexion 55 Inversion 30 Eversion 20 Comments Lacking 10? from neutral with DF - knee extended Left Active Testing Position Sitting Dorsiflexion with Knee Flexed 5 Plantarflexion 60 Inversion 30 Eversion 25 Comments Lacking 5? from neutral with DF - knee extended PT-OP-Q Treatments Start: 10/22/22 11:57 Freq: Status: Active Protocol: Document 12/10/22 09:10 DCW (Rec: 12/10/22 09:47 DCW [id number]) Therapeutic Exercises Sitting Exercises Intrinsic Foot Strengthening Sitting Exercise Name Accident pick-up Standing Exercises SLS Standing Exercise Name SLS on Blue Foam Side bilateral BAPS Standing Exercise Name BAPS board Side bilateral Resistance Lv 4 Comments Single Leg Manual Therapy Treatment Soft Tissue Mobilization Plantar Fascia Body Location B Plantar Fascia Mobilization Type Cross-Friction Calf Body Location B Calf Mobilization Type Instrument Assisted,Rolling Intensity/Depth Moderate PT-OP-R Modalities Start: 10/22/22 11:57 Freq: Status: Active Protocol: Document 11/12/22 09:48 DCW (Rec: 11/12/22 10:32 DCW [id number]) Ultrasound Therapy Treatment Calf Treatment Duration (minutes) 10 Patient Position Prone Coupling Medium Ultrasound Gel Applicator Size (cm2) 5 Frequency Setting (mHz) 3 Mode Setting Continuous Intensity Setting (w/cm2) 1.0 Comments B calf and plantar surface PT-OP-T Assessment and Plan Start: 10/22/22 11:57 Freq: Status: Active Protocol: Document 12/10/22 09:10 DCW (Rec: 12/10/22 09:47 DCW [id number]) Physical Therapy Assessment Impairments Impairments Functional Activities, Functional Mobility,Gait,Pain, ROM,Soft Tissue Mobility, Strength Goals Two Impairment Gastroc tightness limits ankle ROM and creates increased force through plantar surface bilaterally Highway Painter Helper Goal (LTG) Pt to exhibit decreased gastroc tone by improving bilateral AROM DF with knee extended to at least neutral positioning to improve swing phase of gait LTG Duration 12/22/22 One Impairment Pt does not have an appropriate home exercise program Short Term Goal (STG) Pt to be independent and compliant with an appropriate HEP STG Duration 11/21/22 Assessment Summary Assessment Increased tenderness today along left posterior tib muscle belly and insertion point, very reactive to palpation in the area. Pt to continue to focus on home stretching and intrinsic strengthening. Physical Therapy Plan Frequency and Duration Frequency of Treatment 2x/Week Plan of Care Start Date 10/22/22 Plan of Care End Date 12/22/22 Therapeutic Interventions Therapeutic Interventions Gait Training,Home Exercise Program,Joint Mobilizations, Manual Therapy,Neuromuscular Re-education,Patient/Caregiver Education,Self-Care/Home Management,Soft Tissue Mobilization,Taping, Therapeutic Activities, Therapeutic Exercises Modalities Cold Pack/Ice Massage,Electric Stimulation,Hot Packs, Ultrasound Next Visit Focus/Plan Next Note Type Treatment Note Next Visit Plan Stretching, calf STM, foot strengthening, Ultrasound
--- NOTE | 2023-01-06 12:03 | PT.OTN ---
Current Diagnoses Plantar fascial fibromatosis (01/06/23) Physical Therapy Treatment Note PT-OP-A Visit Information Start: 10/22/22 11:57 Freq: Status: Active Protocol: Document 01/06/23 11:17 DCW (Rec: 01/06/23 12:03 DCW [id number]) Out-Patient Physical Therapy Visit Information Visit Information Visit Type Progress Note Visit Start Time 11:17 Visit Stop Time 12:00 Total Visit Minutes 43 Visit Number 4 Number of OFFSET PLATE MAKER Visits 0 Evaluation Information Evaluation Date 10/22/22 PT-OP-B Current Condition Start: 10/22/22 11:57 Freq: Status: Active Protocol: Document 10/22/22 10:30 DCW (Rec: 10/22/22 12:10 DCW [id number]) Current Condition History of Current Condition Onset Date 1+ month history Current Complaints bilateral foot/heel pain History of Current Condition Pt is a 27 year old female presenting with a more than one month history of bilateral heel and foot pain. Pt reports left has been worse than right. Symptoms at their worst when first getting up in the morning, and standing after an extended time sitting . Pain largely concentrated on plantar surface of her posterior feet and back in the posterior heel. Pt was previously referred to a drain cleaner, who diagnosed Plantar Fasciitis. Symptoms also worse if she attempts to run after her three year old son or jump. No specific initial injury, just noticed it was bothering her one day. PT-OP-C Subjective Start: 10/22/22 11:57 Freq: Status: Active Protocol: Document 01/06/23 11:17 DCW (Rec: 01/06/23 12:03 DCW [id number]) OP-PT Subjective Patient Comments Patient Comments Sometimes it's better, sometimes it's worse. PT-OP-F Manual Assessment Start: 10/22/22 11:57 Freq: Status: Active Protocol: Document 01/06/23 11:17 DCW (Rec: 01/06/23 11:29 DCW [id number]) Manual Assessments Soft Tissue Assessment Soft Tissue Mobility Assessment Tenderness to palpation 2/4: Pain with wincing bilateral plantar surface along heel, posterior heel PT-OP-J Posture/Palpation/Skin Start: 10/22/22 11:57 Freq: Status: Active Protocol: Document 10/22/22 10:30 DCW (Rec: 10/22/22 15:07 DCW [id number]) Posture Evaluation Position Standing Evaluation View Anterior Ankle/Foot Posture (L) Pronated,(R) Pronated Foot Arch (L) Low Arch,(R) Low Arch PT-OP-K Range of Motion Start: 10/22/22 11:57 Freq: Status: Active Protocol: Document 01/06/23 11:17 DCW (Rec: 01/06/23 11:29 DCW [id number]) Ankle and Foot Goniometric Range of Motion Ankle and Foot Right Active Testing Position Sitting Dorsiflexion with Knee Flexed 5 Comments Lacking 5? from neutral with DF - knee extended Left Active Testing Position Sitting Dorsiflexion with Knee Flexed 5 Comments Lacking 5? from neutral with DF - knee extended PT-OP-Q Treatments Start: 10/22/22 11:57 Freq: Status: Active Protocol: Document 01/06/23 11:17 DCW (Rec: 01/06/23 12:03 DCW [id number]) Manual Therapy Treatment Soft Tissue Mobilization Plantar Fascia Body Location B Plantar Fascia Mobilization Type Cross-Friction Calf Body Location B Calf Mobilization Type Instrument Assisted,Rolling Intensity/Depth Moderate Taping 1 Body Location B Y-strips Heel->Proximal Calf Type of Tape Kinesio Tape PT-OP-R Modalities Start: 10/22/22 11:57 Freq: Status: Active Protocol: Document 01/06/23 11:17 DCW (Rec: 01/06/23 12:03 DCW [id number]) Ultrasound Therapy Treatment Calf Treatment Duration (minutes) 10 Patient Position Prone Coupling Medium Ultrasound Gel Applicator Size (cm2) 5 Frequency Setting (mHz) 3 Mode Setting Continuous Intensity Setting (w/cm2) 1.0 Comments B calf and plantar surface PT-OP-T Assessment and Plan Start: 10/22/22 11:57 Freq: Status: Active Protocol: Document 01/06/23 11:17 DCW (Rec: 01/06/23 12:03 DCW [id number]) Physical Therapy Assessment Impairments Impairments Functional Activities, Functional Mobility,Gait,Pain, ROM,Soft Tissue Mobility, Strength Goals Two Impairment Gastroc tightness limits ankle ROM and creates increased force through plantar surface bilaterally Custodial Goal (LTG) Pt to exhibit decreased gastroc tone by improving bilateral AROM DF with knee extended to at least neutral positioning to improve swing phase of gait LTG Duration 03/08/23 - Improving One Impairment Pt does not have an appropriate home exercise program Short Term Goal (STG) Pt to be independent and compliant with an appropriate HEP STG Duration 02/05/23 - Improving Assessment Summary Assessment Continues to have increased posterior tib pain, trial of K -tape today bilaterally to determine if it helps decrease pain and improve mobility. Continue to focus on improving functional strength in lower extremities and intrinsic foot musculature. Physical Therapy Plan Frequency and Duration Frequency of Treatment 2x/Week Plan of Care Start Date 01/06/23 Plan of Care End Date 03/08/23 Therapeutic Interventions Therapeutic Interventions Gait Training,Home Exercise Program,Joint Mobilizations, Manual Therapy,Neuromuscular Re-education,Patient/Caregiver Education,Self-Care/Home Management,Soft Tissue Mobilization,Taping, Therapeutic Activities, Therapeutic Exercises Modalities Cold Pack/Ice Massage,Electric Stimulation,Hot Packs, Ultrasound Next Visit Focus/Plan Next Note Type Treatment Note Next Visit Plan Stretching, calf STM, foot strengthening, Ultrasound
--- NOTE | 2023-01-06 12:03 | PT.OPPOC ---
Physical, Occupational & Speech Therapy At [facility] Current Diagnoses Plantar fascial fibromatosis (01/06/23) Visit Care Team Role Provider Type KATE Mulligan Primary Care Provider Non-Staff Specialty: Medical Address: [address] , [place], [address] Email: Attending Provider Family Provider Referring Provider Specialty: Address: Phone: Fax: Email: Plan Of Care PT-OP-T Assessment and Plan Start: 10/22/22 11:57 Freq: Status: Active Protocol: Document 01/06/23 11:17 DCW (Rec: 01/06/23 12:03 DCW [id number]) Physical Therapy Assessment Impairments Impairments Functional Activities, Functional Mobility,Gait,Pain, ROM,Soft Tissue Mobility, Strength Goals Two Impairment Gastroc tightness limits ankle ROM and creates increased force through plantar surface bilaterally Computer Numerical Control Grinder Goal (LTG) Pt to exhibit decreased gastroc tone by improving bilateral AROM DF with knee extended to at least neutral positioning to improve swing phase of gait LTG Duration 03/08/23 - Improving One Impairment Pt does not have an appropriate home exercise program Short Term Goal (STG) Pt to be independent and compliant with an appropriate HEP STG Duration 02/05/23 - Improving Assessment Summary Assessment Continues to have increased posterior tib pain, trial of K -tape today bilaterally to determine if it helps decrease pain and improve mobility. Continue to focus on improving functional strength in lower extremities and intrinsic foot musculature. Physical Therapy Plan Frequency and Duration Frequency of Treatment 2x/Week Plan of Care Start Date 01/06/23 Plan of Care End Date 03/08/23 Therapeutic Interventions Therapeutic Interventions Gait Training,Home Exercise Program,Joint Mobilizations, Manual Therapy,Neuromuscular Re-education,Patient/Caregiver Education,Self-Care/Home Management,Soft Tissue Mobilization,Taping, Therapeutic Activities, Therapeutic Exercises Modalities Cold Pack/Ice Massage,Electric Stimulation,Hot Packs, Ultrasound Next Visit Focus/Plan Next Note Type Treatment Note Next Visit Plan Stretching, calf STM, foot strengthening, Ultrasound Plan of Care Dates Plan of Care Start Date 01/06/23 Plan of Care End Date 03/08/23 Electronically Signed by: Nadeem Wolfe, PT 01/06/23 2501 If you are in agreement with this Plan of Care, please return a signed and dated copy. I have reviewed this Plan of Care and certify that the skilled therapy services above are required to meet the patient?s needs. Physician Signature Date Printed Name and Credentials Clinical Instructor Signature Printed Name and Credentials
--- NOTE | 2023-01-13 11:57 | PT.OTN ---
Current Diagnoses Plantar fascial fibromatosis (01/13/23) Physical Therapy Treatment Note PT-OP-A Visit Information Start: 10/22/22 11:57 Freq: Status: Active Protocol: Document 01/13/23 11:15 DCW (Rec: 01/13/23 11:57 DCW [id number]) Out-Patient Physical Therapy Visit Information Visit Information Visit Type Treatment Note Visit Start Time 11:15 Visit Stop Time 12:00 Total Visit Minutes 45 Visit Number 5 Number of MACHINE SHOP HELPER Visits 0 Evaluation Information Evaluation Date 10/22/22 PT-OP-B Current Condition Start: 10/22/22 11:57 Freq: Status: Active Protocol: Document 10/22/22 10:30 DCW (Rec: 10/22/22 12:10 DCW [id number]) Current Condition History of Current Condition Onset Date 1+ month history Current Complaints bilateral foot/heel pain History of Current Condition Pt is a 27 year old female presenting with a more than one month history of bilateral heel and foot pain. Pt reports left has been worse than right. Symptoms at their worst when first getting up in the morning, and standing after an extended time sitting . Pain largely concentrated on plantar surface of her posterior feet and back in the posterior heel. Pt was previously referred to a certified emergency vehicle technician, who diagnosed Plantar Fasciitis. Symptoms also worse if she attempts to run after her three year old son or jump. No specific initial injury, just noticed it was bothering her one day. PT-OP-C Subjective Start: 10/22/22 11:57 Freq: Status: Active Protocol: Document 01/13/23 11:15 DCW (Rec: 01/13/23 11:57 DCW [id number]) OP-PT Subjective Patient Comments Patient Comments Pt notes her feet are doing much better. Only very mild occasional pain over the past week. Good results with K-tape . PT-OP-F Manual Assessment Start: 10/22/22 11:57 Freq: Status: Active Protocol: Document 01/06/23 11:17 DCW (Rec: 01/06/23 11:29 DCW [id number]) Manual Assessments Soft Tissue Assessment Soft Tissue Mobility Assessment Tenderness to palpation 2/4: Pain with wincing bilateral plantar surface along heel, posterior heel PT-OP-J Posture/Palpation/Skin Start: 10/22/22 11:57 Freq: Status: Active Protocol: Document 10/22/22 10:30 DCW (Rec: 10/22/22 15:07 DCW [id number]) Posture Evaluation Position Standing Evaluation View Anterior Ankle/Foot Posture (L) Pronated,(R) Pronated Foot Arch (L) Low Arch,(R) Low Arch PT-OP-K Range of Motion Start: 10/22/22 11:57 Freq: Status: Active Protocol: Document 01/06/23 11:17 DCW (Rec: 01/06/23 11:29 DCW [id number]) Ankle and Foot Goniometric Range of Motion Ankle and Foot Right Active Testing Position Sitting Dorsiflexion with Knee Flexed 5 Comments Lacking 5? from neutral with DF - knee extended Left Active Testing Position Sitting Dorsiflexion with Knee Flexed 5 Comments Lacking 5? from neutral with DF - knee extended PT-OP-Q Treatments Start: 10/22/22 11:57 Freq: Status: Active Protocol: Document 01/13/23 11:15 DCW (Rec: 01/13/23 11:57 DCW [id number]) Manual Therapy Treatment Soft Tissue Mobilization Plantar Fascia Body Location B Plantar Fascia Mobilization Type Cross-Friction Calf Body Location B Calf Mobilization Type Instrument Assisted,Rolling Intensity/Depth Moderate Taping 1 Body Location B Y-strips Heel->Proximal Calf Type of Tape Kinesio Tape PT-OP-R Modalities Start: 10/22/22 11:57 Freq: Status: Active Protocol: Document 01/13/23 11:15 DCW (Rec: 01/13/23 11:57 DCW [id number]) Ultrasound Therapy Treatment Calf Treatment Duration (minutes) 10 Patient Position Prone Coupling Medium Ultrasound Gel Applicator Size (cm2) 5 Frequency Setting (mHz) 3 Mode Setting Continuous Intensity Setting (w/cm2) 1.0 Comments B calf and plantar surface PT-OP-T Assessment and Plan Start: 10/22/22 11:57 Freq: Status: Active Protocol: Document 01/13/23 11:15 DCW (Rec: 01/13/23 11:57 DCW [id number]) Physical Therapy Assessment Impairments Impairments Functional Activities, Functional Mobility,Gait,Pain, ROM,Soft Tissue Mobility, Strength Goals Two Impairment Gastroc tightness limits ankle ROM and creates increased force through plantar surface bilaterally Assisted Goal (LTG) Pt to exhibit decreased gastroc tone by improving bilateral AROM DF with knee extended to at least neutral positioning to improve swing phase of gait LTG Duration 03/08/23 - Improving One Impairment Pt does not have an appropriate home exercise program Short Term Goal (STG) Pt to be independent and compliant with an appropriate HEP STG Duration 02/05/23 - Improving Assessment Summary Assessment Appears to be doing much better overall, much less frequent and less severe pain, showing good progress and has been fairly compliant with HEP. Good response to K-tape. Physical Therapy Plan Frequency and Duration Frequency of Treatment 2x/Week Plan of Care Start Date 01/06/23 Plan of Care End Date 03/08/23 Therapeutic Interventions Therapeutic Interventions Gait Training,Home Exercise Program,Joint Mobilizations, Manual Therapy,Neuromuscular Re-education,Patient/Caregiver Education,Self-Care/Home Management,Soft Tissue Mobilization,Taping, Therapeutic Activities, Therapeutic Exercises Modalities Cold Pack/Ice Massage,Electric Stimulation,Hot Packs, Ultrasound Next Visit Focus/Plan Next Note Type Treatment Note Next Visit Plan Stretching, calf STM, foot strengthening, Ultrasound
--- NOTE | 2023-01-17 12:32 | PT.OTN ---
Current Diagnoses Plantar fascial fibromatosis (01/17/23) Physical Therapy Treatment Note PT-OP-A Visit Information Start: 10/22/22 11:57 Freq: Status: Active Protocol: Document 01/17/23 12:00 DCW (Rec: 01/17/23 12:32 DCW [id number]) Out-Patient Physical Therapy Visit Information Visit Information Visit Type Discharge Summary Visit Start Time 12:00 Visit Stop Time 12:25 Total Visit Minutes 25 Visit Number 6 Number of FILM OR TAPE LIBRARIAN Visits 0 Evaluation Information Evaluation Date 10/22/22 PT-OP-B Current Condition Start: 10/22/22 11:57 Freq: Status: Active Protocol: Document 10/22/22 10:30 DCW (Rec: 10/22/22 12:10 DCW [id number]) Current Condition History of Current Condition Onset Date 1+ month history Current Complaints bilateral foot/heel pain History of Current Condition Pt is a 27 year old female presenting with a more than one month history of bilateral heel and foot pain. Pt reports left has been worse than right. Symptoms at their worst when first getting up in the morning, and standing after an extended time sitting . Pain largely concentrated on plantar surface of her posterior feet and back in the posterior heel. Pt was previously referred to a copper miner blasting, who diagnosed Plantar Fasciitis. Symptoms also worse if she attempts to run after her three year old son or jump. No specific initial injury, just noticed it was bothering her one day. PT-OP-C Subjective Start: 10/22/22 11:57 Freq: Status: Active Protocol: Document 01/17/23 12:00 DCW (Rec: 01/17/23 12:32 DCW [id number]) OP-PT Subjective Patient Comments Patient Comments No problems since she was here last, went for a long walk, some very slight soreness afterward, but otherwise fine. PT-OP-F Manual Assessment Start: 10/22/22 11:57 Freq: Status: Active Protocol: Document 01/06/23 11:17 DCW (Rec: 01/06/23 11:29 DCW [id number]) Manual Assessments Soft Tissue Assessment Soft Tissue Mobility Assessment Tenderness to palpation 2/4: Pain with wincing bilateral plantar surface along heel, posterior heel PT-OP-J Posture/Palpation/Skin Start: 10/22/22 11:57 Freq: Status: Active Protocol: Document 10/22/22 10:30 DCW (Rec: 10/22/22 15:07 DCW [id number]) Posture Evaluation Position Standing Evaluation View Anterior Ankle/Foot Posture (L) Pronated,(R) Pronated Foot Arch (L) Low Arch,(R) Low Arch PT-OP-K Range of Motion Start: 10/22/22 11:57 Freq: Status: Active Protocol: Document 01/17/23 12:00 DCW (Rec: 01/17/23 12:32 DCW [id number]) Ankle and Foot Goniometric Range of Motion Ankle and Foot Right Active Testing Position Sitting Dorsiflexion with Knee Flexed 0 Left Active Testing Position Sitting Dorsiflexion with Knee Flexed 0 PT-OP-Q Treatments Start: 10/22/22 11:57 Freq: Status: Active Protocol: Document 01/17/23 12:00 DCW (Rec: 01/17/23 12:32 DCW [id number]) Manual Therapy Treatment Soft Tissue Mobilization Plantar Fascia Body Location B Plantar Fascia Mobilization Type Cross-Friction Calf Body Location B Calf Mobilization Type Instrument Assisted,Rolling Intensity/Depth Moderate Taping 1 Body Location B Y-strips Heel->Proximal Calf Type of Tape Kinesio Tape PT-OP-R Modalities Start: 10/22/22 11:57 Freq: Status: Active Protocol: Document 01/13/23 11:15 DCW (Rec: 01/13/23 11:57 DCW [id number]) Ultrasound Therapy Treatment Calf Treatment Duration (minutes) 10 Patient Position Prone Coupling Medium Ultrasound Gel Applicator Size (cm2) 5 Frequency Setting (mHz) 3 Mode Setting Continuous Intensity Setting (w/cm2) 1.0 Comments B calf and plantar surface PT-OP-T Assessment and Plan Start: 10/22/22 11:57 Freq: Status: Active Protocol: Document 01/17/23 12:00 DCW (Rec: 01/17/23 12:32 MAW [id number]) Physical Therapy Assessment Impairments Impairments Functional Activities, Functional Mobility,Gait,Pain, ROM,Soft Tissue Mobility, Strength Goals Two Impairment Gastroc tightness limits ankle ROM and creates increased force through plantar surface bilaterally Advertising Job Titles Goal (LTG) Pt to exhibit decreased gastroc tone by improving bilateral AROM DF with knee extended to at least neutral positioning to improve swing phase of gait LTG Duration Met One Impairment Pt does not have an appropriate home exercise program Short Term Goal (STG) Pt to be independent and compliant with an appropriate HEP STG Duration Met Progress Towards Goals Progress Towards Goals Goals Met Assessment Summary Assessment Pt making great progress, has met all goals. Feels comfortable at this time with independent HEP, no longer having pain or symptoms that originally brought her in to therapy. appropriate for discharge at this time. Physical Therapy Plan Frequency and Duration Frequency of Treatment 2x/Week Plan of Care Start Date 01/06/23 Plan of Care End Date 03/08/23 Therapeutic Interventions Therapeutic Interventions Gait Training,Home Exercise Program,Joint Mobilizations, Manual Therapy,Neuromuscular Re-education,Patient/Caregiver Education,Self-Care/Home Management,Soft Tissue Mobilization,Taping, Therapeutic Activities, Therapeutic Exercises Modalities Cold Pack/Ice Massage,Electric Stimulation,Hot Packs, Ultrasound Discharge Physical Therapy Discharge Reasons Goals Met Next Visit Focus/Plan Next Note Type Discharge Summary
== END 2023-01-17 13:57 | disposition home or self-care (01) ==
LOC: PHYS 12:00
PROVIDERS: PCP Nurse Practitioner
DX: M72.2 Plantar fascial fibromatosis (principal)
CPT/HCPCS: 97035; 97110; 97140; 97161

== ENCOUNTER → 2023-11-16 18:16 | Outpatient (CLI) | payer OTHER, SELFPAY | PROVIDERS: PCP Nurse Practitioner; Referring Provider Internal Medicine; Visit Provider Internal Medicine | DX: Z23 Encounter for immunization (principal) | CPT/HCPCS: 90471; 90656 ==